=== PATIENT | female | born 1985 | race Caucasian/White ===

== ENCOUNTER 2016-09-12 13:30 | Outpatient (CLI) | payer MEDICAID ==
[~2016-09-12] VITALS: Ht 157.5 cm; Wt 109.3 kg
[~2016-09-12 13:30] MED LIST: ACHYD1T PO; ALBU17AE23 IH; AZIT-21 PO; CEFP500T4 PO; CLCX200C; CRYSELLE; CYCL10TA9; DCS100C PO; DICY10CA26 PO; DOXY100T2 PO; ESTR-7 PO; FLUO20CA25 PO; FLUO20CA42 PO; GFCD10B PO; HYDR-2890 PO; IBP800T PO; MULT-608 PO; NAPR-243 PO; NITR-65 PO; OCP; ONDAN4ODT PO; OXYC-309 PO; PHEN37.555 PO; PRD50T PO; PRENATAL VIT; TRM50T PO; ZLP5T PO; [UNRECOGNIZED DRUG - OTHER]
[2016-09-12] MEDS ORDERED: OMEP20TA33 PO (13:43)
[2016-09-12] MEDS ORDERED: TRAM50TA2 PO (13:43)
[2016-09-12] MEDS ORDERED: OXYC-465 PO (13:43)
[2016-09-12] MEDS ORDERED: TPR25T PO (13:43)
[2016-09-12] MEDS ORDERED: RIZA5TAB28 PO (13:43)
[2016-09-12] MEDS ORDERED: FLUO40CA PO (13:43)
[2016-09-12] MEDS ORDERED: HYOS0.1216 PO (13:43)
[2016-09-12 13:47] VITALS: BP 130/77
[2016-09-12 14:06] LABS: BASOPHILS # (AUTO) 0.1 10^3/uL (0.0-0.1); BASOPHILS % (AUTO) 1 % (0-10); EOSINOPHILS # (AUTO) 0.4 10^3/uL (0.0-0.3); EOSINOPHILS % (AUTO) 4 % (0-10); LYMPHOCYTES % (AUTO) 33 % (12-44); MEAN CORPUSCULAR HEMOGLOBIN 30 PG (25-34); MEAN CORPUSCULAR HGB CONC 34 G/DL (32-36); MEAN CORPUSCULAR VOLUME 88 FL (80-99); MEAN PLATELET VOLUME 8.7 FL (7.4-10.4); MONOCYTES # (AUTO) 0.6 X 10^3 (0.0-1.0); MONOCYTES % (AUTO) 7 % (0-12); NEUTROPHILS # (AUTO) 5.1 X 10^3 (1.8-7.8); NEUTROPHILS % (AUTO) 56 % (42-75); PLATELET COUNT 365 10^3/uL (130-400); RED BLOOD COUNT 4.31 10^6/uL (4.35-5.85); RED CELL DISTRIBUTION WIDTH 12.4 % (10.0-14.5); WHITE BLOOD COUNT 9.1 10^3/uL (4.3-11.0)
[2016-09-16] MEDS ORDERED: OXYC-465 PO (12:22)
== END 2016-09-12 13:57 | disposition home or self-care (01) ==
LOC: PREOP 13:30
PROVIDERS: ATTEND Obstetrics & Gynecology
DX: Z01.812 Encounter for preprocedural laboratory examination (principal); Z11.2 Encounter for screening for other bacterial diseases; R10.2 Pelvic and perineal pain; D64.9 Anemia, unspecified
CPT/HCPCS: 36415; 85025; 87081

== ENCOUNTER 2016-09-16 10:45 | Day surgery (SDC) | payer MEDICAID ==
[~2016-09-16] VITALS: Ht 157.5 cm; Wt 109.3 kg
[~2016-09-16 10:45] MED LIST changes: +FLUO40CA PO; +HYOS0.1216 PO; +OMEP20TA33 PO; +OXYC-465 PO; +RIZA5TAB28 PO; +TPR25T PO; +TRAM50TA2 PO
[2016-09-16] MEDS ORDERED: ceFAZolin 1,000 MG (ANCEF) VIAL ONE (10:47)
[2016-09-16] MEDS ORDERED: NS (IVPB) 50 ML ONE (10:47)
[2016-09-16 11:15] VITALS: BP 124/85
[2016-09-16] MEDS ORDERED: FAMOTIDINE 20MG/2ML IV (PEPCID) IV ONE (11:15)
[2016-09-16] MEDS ORDERED: CATHETER FLUSH 10 ML SYR IV PRN (11:15)
[2016-09-16] MEDS ORDERED: ceFAZolin 1 GM/NS 50 ML IVPB IV ONE ×2 (11:15)
[2016-09-16] MEDS: LACTATED RINGERS 1,000 ML IV PRN ×4 (11:20→17:50)
[2016-09-16] MEDS ORDERED: LIDOCAINE PF 2% 10 ML (XYLOCAINE) AMP ONE (11:39)
[2016-09-16] MEDS ORDERED: LIDOCAINE JELLY 2% (XYLOCAINE) 5 ML TUBE ONE (11:39)
[2016-09-16] MEDS ORDERED: proPOfol 200 MG/20 ML (DIPRIVAN) VIAL IV ONE (11:39)
[2016-09-16] MEDS ORDERED: LACTATED RINGERS 1,000 ML IV ONE (11:39)
[2016-09-16] MEDS ORDERED: fentaNYL INJECTION 100 MCG/2 ML AMP ONE (11:39)
[2016-09-16] MEDS ORDERED: ROCURONIUM 50 MG/5 ML (ZEMURON) VIAL IV ONE (11:39)
[2016-09-16] MEDS ORDERED: ONDANSETRON 4 MG/2 ML (SDV) Z0FRAN ONE (11:39)
[2016-09-16] MEDS ORDERED: MIDAZOLAM 2 MG/2 ML (VERSED) VIAL ONE (11:40)
[2016-09-16] MEDS ORDERED: morphine INJ 10 MG/ML 1ML (SYR OR VIAL) ONE ×2 (11:46→13:24)
[2016-09-16] MEDS ORDERED: MEPERIDINE (DEMEROL) INJ 50 MG/ML ONE (11:47)
[2016-09-16] MEDS ORDERED: ESTROGENS CONJ IV 25 MG/5 ML (PREMARIN) VIAL ONE (11:50)
[2016-09-16] MEDS ORDERED: KETOROLAC 30 MG/ML VIAL ONE (11:51)
[2016-09-16] MEDS ORDERED: WATER (STERILE) FOR INJECTION 10 ML ONE (11:51)
[2016-09-16] MEDS ORDERED: BUP/EPI 0.25% 1:200,000 (MARCAINE) 30 ML VIAL ONE (12:16)
--- NOTE | 2016-09-16 12:19 | Progress Note-Pre Operative ---
Pre-Operative Progress Note H&P Reviewed The H&P was reviewed, patient examined and no changes noted. Date H&P Reviewed: Sep 16, 2016 Time H&P Reviewed: 12:19 Pre-Operative Diagnosis: chronic pelvic pain/history of endometriosis INES FORTE MD Sep 16, 2016 12:19 pm
[2016-09-16] MEDS ORDERED: D5 LR IV SOLUTION 1,000 ML IV SCH (12:20)
[2016-09-16] MEDS ORDERED: OXYC-465 PO (12:22)
--- NOTE | 2016-09-16 12:25 | Discharge Instructions ---
Discharge Instructions Discharge Medications New, Converted or Re-Newed RX: RX on Chart Patient Instructions Patient Instructions: as directed Return to The Hospital For: as directed Activity & Diet Discharge Diet: No Restrictions Activity as Tolerated: Yes Orders-Post D/C & Referrals Follow Up Appt: Call to make follow up appt. for patient in 1 week. Activity: Rest for 24 hours, than as tolerated. Wound Care: May remove Band-Aid tomorrow. Replace as desired. Keep incisions clean and dry. Wash daily with soap and water. continue your own home medications including Sprintec Diet: As tolerated-Clear Liquids only if nauseated. May shower or tub bathe as desired. No driving for 24 hours, no alcoholic beverages for 24 hours. Patient to return to the clinic as soon as possible for: Temperature greater than 101F, Severe Pain, Foul discharge from incision or vagina, Excessive Bleeding (more than a period). INES FORTE MD Sep 16, 2016 12:25 pm
[2016-09-16] MEDS ORDERED: PROMETHAZINE INJ 25 MG/ML (PHENERGAN) AMP IM ONE (12:30)
[2016-09-16] MEDS ORDERED: KETOROLAC 30 MG/ML VIAL IVP ONE (12:30)
[2016-09-16] MEDS ORDERED: MEPERIDINE (DEMEROL) INJ 100 MG/ML IM ONE (12:30)
[2016-09-16] MEDS ORDERED: ESTROGENS CONJ IV 25 MG/5 ML (PREMARIN) VIAL IVP ONE (12:30)
[2016-09-16] MEDS ORDERED: ONDANSETRON 4 MG/2 ML (SDV) Z0FRAN IVP PRN (12:30)
[2016-09-16] MEDS ORDERED: SEVOFLURANE (ULTANE) 15 ML INHAL SOLN ONE ×3 (12:46→13:49)
[2016-09-16] MEDS ORDERED: NEOSTIGMINE (BLOXIVERZ ) 1 MG/1ML 10 ML VIAL ONE (13:49)
[2016-09-16] MEDS ORDERED: GLYCOPYRROLATE 0.2 MG/ML (ROBINUL) 2 ML VIAL ONE (13:49)
[2016-09-16] MEDS ORDERED: morphine INJ 10 MG/ML 1ML (SYR OR VIAL) IVP PRN (14:00)
[2016-09-16] MEDS ORDERED: MEPERIDINE (DEMEROL) INJ 50 MG/ML IVP PRN (14:00)
[2016-09-16 14:40] VITALS: BP 96/51
[2016-09-16] MEDS: oxyCODONE/APAP 10/325MG (PERCOCET 10) TABLET PO PRN ×2 (14:56→18:52)
[2016-09-16 15:10] VITALS: BP 102/68
[2016-09-16 15:40] VITALS: BP 108/67
[2016-09-16 19:16] VITALS: BP 108/67
--- NOTE | 2016-09-17 03:56 | OPERATIVE REPORT ---
DATE OF SERVICE: 09/16/2016 PREOPERATIVE DIAGNOSIS: Right lower quadrant and chronic pelvic pain with a history of endometriosis. POSTOPERATIVE DIAGNOSES: Right lower quadrant and chronic pelvic pain with a history of endometriosis with appendicitis. OPERATIVE PROCEDURES: Laparoscopic right salpingo-oophorectomy and laparoscopic appendectomy as well as adhesiolysis. OPERATIVE DESCRIPTION: With the patient in the supine position and under satisfactory general anesthesia, she was repositioned in dorsal lithotomy position in the [facility] and prepped and draped in the usual fashion for abdominal and vaginal surgery. The urinary bladder was emptied with a straight catheter. A moistened Kerlix gauze was placed in the vagina to distend the vaginal cuff. The patient was brought in the low dorsal lithotomy position. A 5 mm incision made in the patient's left upper quadrant. An 8 mm incision in the inferior margin of the umbilicus and a 5 mm incision just superior to the symphysis pubis. All three incision sites were infiltrated with 0.25% Marcaine with epinephrine. A Veress needle was placed through the umbilical incision. Correct placement was confirmed with the water drop test. The abdomen was insufflated with 2.4 liters of carbon dioxide. The Optiview laparoscopic port was placed through left upper quadrant. Under direct vision, a 12 mm port was placed through the 12 mm umbilical incision and a 5 mm port placed through suprapubic incision. The patient was placed in Trendelenburg, allowing the bowels to split up out of the pelvis. The right ovary was adherent to the ovarian fossa on the right with dense fibrotic appearing adhesions as would be expected with endometriosis. There appeared to be endometriosis implants involving the ovary as well as the right fallopian tube, distal third was still attached to the ovary. The ovary was adherent to the pelvic brim as well. The laparoscope was rotated. The appendix was indurated, injected, and erythematous. Decision was made to go ahead with appendectomy as it appeared the patient's appendix was obviously inflamed. Attention was brought back to the ovary. The ovary was grasped and elevated. The adhesions were taken free with careful meticulous dissection taking care to avoid thermal or traumatic injury to the pelvic sidewall structures. With the right ovary eventually freed onto its IP ligament, an Endo-HORACE was placed across the IP ligament and fired, severing the ovary from its attachment. The ovary with the tubes still attached was placed in the Endobag and left resting in the pelvis for removal later. Attention was now turned to the appendix. The appendix was grasped and elevated. The mesosalpinx was perforated close to the base of the appendix. Endo-HORACE was placed across the base of the appendix and fired and then a portion of the mesoappendix was divided with electrocautery and then a second Endo-HORACE was placed across the balance of the mesoappendix and fired severing that organ from its attachment. It was placed in an Endobag and brought out through the umbilical port. The pelvis was copiously irrigated as well as the right paracolic gutter. There was no bleeding noted in the right paracolic gutter. There was little bit of bleeding from the IP ligament. This was touched with electrocautery to affect hemostasis. Hemostasis assured and the pelvis irrigated, several drops of Betadine solution were dripped on the stump of the appendix. The procedure was complete and terminated. At this point, the suprapubic port was removed under direct vision. The umbilical port was removed, and then the Endobag with the ovary and tube from the right were brought out through the umbilical incision. The abdomen was evacuated. The insufflating gas in the right upper quadrant port was removed also under direct vision. There was no bleeding from the port sites. Sponge and needle counts were correct. Estimated blood loss at this point was less than 20 mL. The skin incisions were closed with interrupted nylon sutures. The fascia at the umbilical incision was closed with [id number] suture of 2-0 Vicryl. The Kerlix gauze was removed from the vagina. The patient was uneventfully awakened from general anesthesia and transferred to the recovery room in stable condition with plans for discharge home ____. Job ID: [id number] DocumentID: [id number] Dictated Date: 09/16/2016 13:30:31 Fish Worm Grower Date: 09/17/2016 03:34:38 Dictated By: MD BRIELLE HERRON
== END 2016-09-16 19:10 | disposition home or self-care (01) ==
LOC: SDC 10:45
PROVIDERS: ATTEND Obstetrics & Gynecology
DX: N80.1 Endometriosis of ovary (principal); N73.6 Female pelvic peritoneal adhesions (postinfective); N83.201 Unspecified ovarian cyst, right side; K38.0 Hyperplasia of appendix
CPT/HCPCS: 88304; 88305

== ENCOUNTER 2016-09-18 06:35 | Emergency (ER) | payer MEDICAID ==
[~2016-09-18] VITALS: Ht 157.5 cm; Wt 108.9 kg
[2016-09-18] MEDS ORDERED: NS IV 1000 ML 1,000 ML IV ONE (06:53)
[2016-09-18] MEDS ORDERED: fentaNYL INJECTION 100 MCG/2 ML AMP IVP ONE ×2 (07:00→09:00)
[2016-09-18] MEDS ORDERED: FAMOTIDINE 20MG/2ML IV (PEPCID) IVP ONE (07:00)
[2016-09-18] MEDS ORDERED: ONDANSETRON 4 MG/2 ML (SDV) Z0FRAN IVP ONE ×2 (07:00→09:45)
[2016-09-18 07:27] LABS: BASOPHILS % (AUTO) 0 % (0-10); EOSINOPHILS # (AUTO) 0.1 10^3/uL (0.0-0.3); EOSINOPHILS % (AUTO) 1 % (0-10); LYMPHOCYTES # (AUTO) 1.2 X 10^3 (1.0-4.0); LYMPHOCYTES % (AUTO) 6 % (12-44); MEAN CORPUSCULAR HEMOGLOBIN 31 PG (25-34); MEAN CORPUSCULAR HGB CONC 34 G/DL (32-36); MEAN CORPUSCULAR VOLUME 90 FL (80-99); MEAN PLATELET VOLUME 8.6 FL (7.4-10.4); MONOCYTES # (AUTO) 1.1 X 10^3 (0.0-1.0); MONOCYTES % (AUTO) 5 % (0-12); NEUTROPHILS # (AUTO) 18.4 X 10^3 (1.8-7.8); NEUTROPHILS % (AUTO) 88 % (42-75); PLATELET COUNT 362 10^3/uL (130-400); RED BLOOD COUNT 4.18 10^6/uL (4.35-5.85); RED CELL DISTRIBUTION WIDTH 12.4 % (10.0-14.5); WHITE BLOOD COUNT 20.8 10^3/uL (4.3-11.0)
[2016-09-18 07:40] LABS: ALANINE AMINOTRANSFERASE 37 U/L (0-55); ALBUMIN 3.9 G/DL (3.2-4.5); ANION GAP 8 MMOL/L (5-14); ASPARTATE AMINO TRANSFERASE 50 U/L (5-34); BILIRUBIN,TOTAL 0.7 MG/DL (0.1-1.0); BLOOD UREA NITROGEN 7 MG/DL (7-18); BUN/CREATININE RATIO 9; CALCIUM 9.1 MG/DL (8.5-10.1); CARBON DIOXIDE 28 MMOL/L (21-32); CHLORIDE 104 MMOL/L (98-107); CREATININE SERUM 0.78 MG/DL (0.60-1.30); GFR ESTIMATED > 60; GLUCOSE 104 MG/DL (70-105); LIPASE 12 U/L (8-78); MAGNESIUM 1.8 MG/DL (1.8-2.4); SODIUM 140 MMOL/L (135-145); TOTAL PROTEIN 6.7 G/DL (6.4-8.2); hs C REACTIVE PROTEIN 2.49 MG/DL (0.00-0.50)
--- NOTE | 2016-09-18 07:42 | ED General ---
General Chief Complaint: Abdominal/GI Problems Stated Complaint: VOMITING 2 DAYS POST SURGERY Nursing Triage Note: c/o postop pain and vomitng. Symptoms worsened this morning. Pt had surgery by Dr Copeland on Monday. Nursing Sepsis Screen: No Definite Risk Source of Information: Patient, Old Records Exam Limitations: No Limitations History of Present Illness Time Seen by Provider: 06:40 Initial Comments This 31-year-old woman presents to the emergency room with complaints of nausea and vomiting starting at approximately 01:00. She had surgery for right salpingo-oophorectomy, appendectomy, and adhesiolysis on September [address] Copeland. Yesterday she was feeling fairly well and eating fine. When she woke early this morning she began to vomit. She also reports having a large amount of flatus followed by a large soft bowel movement. She has not been using any stool softeners. She denies fever. She reports urinary frequency. She also reports having some acid reflux symptoms with heartburn. Allergies and Home Medications Allergies Coded Allergies: No Known Drug Allergies (Unverified , 10/30/08) Home Medications Albuterol 17 Gm Aerosol, 17 GM IH Q6H PRN, (Reported) Fluoxetine HCl 40 Mg Capsule, PO DAILY, (Reported) Hyoscyamine Sulfate 0.125 Mg Tablet, 0.125 MG PO Q8H PRN for SPASMS, (Reported) Multivitamins 1 Tab Tablet, 1 TAB PO DAILY, (Reported) Omeprazole Magnesium 20 Mg Tablet.dr, 40 MG PO DAILY, (Reported) TAKE 2 (20MG) TABS Ondansetron 4 Mg Tab.rapdis, 4 MG SL Q4H PRN for NAUSEA/VOMITING-1ST LINE, #10 Prescribed by: IDALMIS DAMICO on 09/18/16 1120 Oxycodone HCl/Acetaminophen 1 Each Tablet, 1-2 EACH PO Q4H PRN for PAIN-MODERATE , #60 Prescribed by: INES CARCAMO on 09/16/16 1222 Rizatriptan Benzoate 5 Mg Tablet, 5 MG PO DAILY PRN for MIGRAINE, (Reported) Topiramate 25 Mg Tablet, 25 MG PO BID, (Reported) Tramadol HCl 50 Mg Tablet, 50 MG PO Q4H PRN for PAIN-MILD, (Reported) Constitutional: no symptoms reported EENTM: no symptoms reported Respiratory: no symptoms reported Cardiovascular: no symptoms reported Gastrointestinal: see HPI Genitourinary: see HPI : No Musculoskeletal: no symptoms reported Skin: no symptoms reported Psychiatric/Neurological: No Symptoms Reported Hematologic/Lymphatic: No Symptoms Reported Past Wkoupox-Yopkar-Srwuya Hx Patient Social History Alcohol Use: Denies Use Recreational Drug Use: No (quit smoking) Smoking Status: Former Smoker Type Used: Cigarettes Recent Foreign Travel: No Contact w/Someone Who Travel: No Recent Infectious Disease Expo: No Recent Hopitalizations: No Immunizations Up To Date Date of Influenza Vaccine: Mar 01, 2010 Seasonal Allergies Seasonal Allergies: Yes Surgeries HX Surgeries: Yes (PARTIAL HYSTERECTOMY WITH LSO,) Surgeries: Abdominal (adhesive lysis), Adenoidectomy, Appendectomy, Section, Gallbladder, Oophorectomy (right salpingo-oophorectomy after hysterectomy), Tonsillectomy, Tubal Ligation Respiratory Hx Respiratory Disorders: No Respiratory Disorders: Asthma Cardiovascular Hx Cardiac Disorders: No Neurological Hx Neurological Disorders: Yes Neurological Disorders: Headaches /Migraines Reproductive System : No Hx Reproductive Disorders: Yes (CPP) Female Reproductive Disorders: Endometriosis Genitourinary Hx Genitourinary Disorders: No Gastrointestinal Hx Gastrointestinal Disorders: Yes Gastrointestinal Disorders: Gastroesophageal Reflux Musculoskeletal Hx Musculoskeletal Disorders: No Endocrine Hx Endocrine Disorders: No HEENT HX ENT Disorders: No Cancer Hx Cancer: No Psychosocial Hx Psychiatric Problems: No Integumentary HX Skin/Integumentary Disorder: No Blood Transfusions Hx Blood Disorders: No Physical Exam Vital Signs Vital Sign - Last 12Hours 09/18/16 06:51 Temp 97.8 Pulse 90 Resp 18 B/P (MAP) 116/60 Pulse Ox 98 Capillary Refill : Less Than 3 Seconds General Appearance: No Apparent Distress, WD/WN, Obese HEENT: PERRL/EOMI, Normal ENT Inspection, Other (oropharynx dry) Neck: Normal Inspection Respiratory: Lungs Clear, Normal Breath Sounds, No Accessory Muscle Use, No Respiratory Distress Cardiovascular: Regular Rate, Rhythm, No Edema, No Murmur Gastrointestinal: Normal Bowel Sounds, Soft, Tenderness (as anticipated for postoperative day number 2), Other (well healing incisions with minimal ecchymosis and sutures intact) Extremity: Normal Inspection, No Pedal Edema Neurologic/Psychiatric: Alert, Oriented x3, No Motor/Sensory Deficits, Normal Mood/Affect, curriculum development specialist II-XII Norm as Tested Skin: Normal Color, Warm/Dry, Other (incisions as above) Progress/Results/Core Measures Results/Orders Lab Results Laboratory Tests Test 09/18/16 07:14 09/18/16 08:09 Range/Units White Blood Count 20.8 H 4.3-11.0 10^3/uL Red Blood Count 4.18 L 4.35-5.85 10^6/uL Hemoglobin 12.8 11.5-16.0 G/DL Hematocrit 38 35-52 % Mean Corpuscular Volume 90 80-99 FL Mean Corpuscular Hemoglobin 31 25-34 PG Mean Corpuscular Hemoglobin Concent 34 32-36 G/DL Red Cell Distribution Width 12.4 10.0-14.5 % Platelet Count 362 130-400 10^3/uL Mean Platelet Volume 8.6 7.4-10.4 FL Neutrophils (%) (Auto) 88 H 42-75 % Lymphocytes (%) (Auto) 6 L 12-44 % Monocytes (%) (Auto) 5 0-12 % Eosinophils (%) (Auto) 1 0-10 % Basophils (%) (Auto) 0 0-10 % Neutrophils # (Auto) 18.4 H 1.8-7.8 X 10^3 Lymphocytes # (Auto) 1.2 1.0-4.0 X 10^3 Monocytes # (Auto) 1.1 H 0.0-1.0 X 10^3 Eosinophils # (Auto) 0.1 0.0-0.3 10^3/uL Basophils # (Auto) 0.0 0.0-0.1 10^3/uL Sodium Level 140 135-145 MMOL/L Potassium Level 4.0 3.6-5.0 MMOL/L Chloride Level 104 98-107 MMOL/L Carbon Dioxide Level 28 21-32 MMOL/L Anion Gap 8 5-14 MMOL/L Blood Urea Nitrogen 7 7-18 MG/DL Creatinine 0.78 0.60-1.30 MG/DL Estimat Glomerular Filtration Rate > 60 BUN/Creatinine Ratio 9 Glucose Level 104 70-105 MG/DL Calcium Level 9.1 8.5-10.1 MG/DL Magnesium Level 1.8 1.8-2.4 MG/DL Total Bilirubin 0.7 0.1-1.0 MG/DL Aspartate Amino Transf (AST/SGOT) 50 H 5-34 U/L Alanine Aminotransferase (ALT/SGPT) 37 0-55 U/L Alkaline Phosphatase 81 40-136 U/L C-Reactive Protein High Sensitivity 2.49 H 0.00-0.50 MG/DL Total Protein 6.7 6.4-8.2 G/DL Albumin 3.9 3.2-4.5 G/DL Lipase 12 8-78 U/L Urine Color YELLOW Urine Clarity CLEAR Urine pH 8 5-9 Urine Specific [place] 1.015 L 1.016-1.022 Urine Protein NEGATIVE NEGATIVE Urine Glucose (UA) NEGATIVE NEGATIVE Urine Ketones 1+ H NEGATIVE Urine Nitrite NEGATIVE NEGATIVE Urine Bilirubin NEGATIVE NEGATIVE Urine Urobilinogen NORMAL NORMAL MG/DL Urine Leukocyte Esterase NEGATIVE NEGATIVE Urine RBC (Auto) NEGATIVE NEGATIVE Urine RBC NONE /HPF Urine WBC NONE /HPF Urine Squamous Epithelial Cells 5-10 /HPF Urine Crystals NONE /LPF Urine Bacteria NEGATIVE /HPF Urine Casts NONE /LPF Urine Mucus NEGATIVE /LPF Urine Culture Indicated NO My Orders Orders - IDALMIS COOK MD Ua Culture If Indicated (09/18/16 06:45) Cbc With Automated Diff (09/18/16 06:53) Comprehensive Metabolic Panel (09/18/16 06:53) Hs C Reactive Protein (09/18/16 06:53) Magnesium (09/18/16 06:53) Saline Lock/Iv-Start (09/18/16 06:53) Ns Iv 1000 Ml (Sodium Chloride 0.9%) (09/18/16 06:53) Fentanyl Injection (Sublimaze Injection (09/18/16 07:00) Famotidine Injection (Pepcid Injection) (09/18/16 07:00) Ondansetron Injection (Zofran Injectio (09/18/16 07:00) Lipase (09/18/16 06:53) Chest Pa/Lat (2 View) (09/18/16 07:45) Fentanyl Injection (Sublimaze Injection (09/18/16 09:00) Ct Abdomen/Pelvis W (09/18/16 08:50) Iohexol Injection (Omnipaque 350 Mg/Ml 1 (09/18/16 09:00) Ns (Ivpb) (Sodium Chloride 0.9% Ivpb Bag (09/18/16 09:00) Ketorolac Injection (Toradol Injection) (09/18/16 09:45) Ondansetron Injection (Zofran Injectio (09/18/16 09:45) Medications Given in ED Vital Signs/I&O Blood Pressure Mean: 78 Progress Note #1: Time: 07:43 Progress Note Patient is receiving a liter of IV normal saline. Labs and UA are being processed. Symptoms were treated with Zofran, Pepcid, and fentanyl. Progress Note #2: Time: 08:52 Progress Note No significant abnormalities were found on workup except for leukocytosis of 20, 000. I discussed the case with Dr. MORENO, lapidary apprentice security solutions architect. He recommends at a minimum performing KUB and upright films. CT scan with contrast should be considered. I discussed the risks and benefits of CT imaging with the patient including cost and risk of radiation exposure. Patient elects to have CT performed now. Pain is rebounding and an additional dose of fentanyl was ordered. Progress Note #3: Time: 09:[address] viewed and report reviewed. There was a small amount of free air and inflammatory changes consistent with recent surgery. Bowel had the appearance of ileus. No other acute abnormalities were identified. Case was again discussed with Dr. MORENO. He advised dismissing the patient with strict return precautions. I communicated the progress with the patient. Patient reports rebounding nausea and pain. She reports pain is now worse than when she first arrived. I ordered Toradol and an additional dose of Zofran. Disposition will be pending her response. Diagnostic Imaging Diagonstic Imaging: Xray Plain Films/CT/US/NM/MRI: chest Comments Chest x-ray viewed by me and report reviewed. See report below: NAME: IVONNE PARSONS [facility] REC#: [id number] PT STATUS: REG ER : 1985 PHYSICIAN: IDALMIS COOK MD ADMIT DATE: 09/18/16/ER Draft Date of Exam:09/18/16 CHEST PA/LAT (2 VIEW) INDICATION: Nausea and vomiting after partial hysterectomy. Comparison made with prior examination from 04/25/12. FINDINGS: The heart size is normal. Mediastinum is unremarkable. There is no pleural effusion, pneumothorax or pneumonia. IMPRESSION: No acute cardiopulmonary abnormality. Dictated on workstation # [id number] Dict: 09/18/16 0812 Trans: 09/18/16 0814 [facility] [id number] Interpreted by: CHERI SORTO Diagonstic Imaging: CT Plain Films/CT/US/NM/MRI: abdomen, pelvis Comments CT abdomen and pelvis viewed by me and report reviewed. See report below: NAME: IVONNE PARSONS [facility] REC#: [id number] PT STATUS: REG ER : 1985 PHYSICIAN: IDALMIS COOK MD ADMIT DATE: 09/18/16/ER Draft Date of Exam:09/18/16 CT ABDOMEN/PELVIS W PROCEDURE: CT abdomen and pelvis with contrast. TECHNIQUE: Multiple contiguous axial images were obtained through the abdomen and pelvis after administration of intravenous contrast. INDICATION: Postop. Nausea and vomiting. Appendectomy and oophorectomy. Comparison with 11/26/2007. FINDINGS: Lung bases are clear. Liver appears normal. Gallbladder is absent. Bile ducts are not dilated. Pancreas and spleen are normal. Adrenal glands and kidneys appear normal. There is normal enhancement of the abdominal organs and vessels following IV contrast. There are air-fluid levels noted within the small bowel which are mildly dilated. There is gas and fluid within the ascending and transverse colon. Descending colon is decompressed. There is a small amount of free air in the abdomen consistent with recent surgery. There is no free fluid. No loculated fluid collections are seen to suggest abscess. IMPRESSION: 1. Finding are consistent with mild adynamic ileus with no definite changes to suggest bowel obstruction. 2. Trace of free air consistent with recent surgery. No free fluid or abscesses demonstrated. Dictated on workstation # [id number] Dict: 09/18/1618 Trans: 09/18/16 0925 [facility] [id number] Interpreted by: AZALIA COWAN MD Departure Impression Impression: Primary Impression: Postoperative pain Additional Impressions: Nausea & vomiting Qualified Codes: R11.2 - Nausea with vomiting, unspecified Leukocytosis Qualified Codes: D72.829 - Elevated white blood cell count, unspecified Disposition: 01 HOME, SELF-CARE Condition: Improved Departure-Patient Inst. Decision time for Depature: 11:00 Referrals: NO,LOCAL PHYSICIAN (PCP) Primary Care Physician Patient Instructions: Postoperative Pain (DC) Add. Discharge Instructions: Continue this upon plenty of clear liquids. Use Percocet for your primary pain management. You may use ibuprofen sparingly for pain not controlled by Percocet. Take 400 mg every 6 hours as needed. Take with food. Continue to take Prilosec (omeprazole) every day. Return to the emergency room if symptoms worsen or you develop new symptoms such as fever greater than 100. Use the Zofran (ondansetron) as prescribed for nausea. Contact Dr. Copeland tomorrow morning to provide him an update. All discharge instructions reviewed with patient and/or family. Voiced understanding. Scripts Ondansetron (Zofran Odt) 4 Mg Tab.rapdis 4 MG SL Q4H Y for NAUSEA/VOMITING-1ST LINE, #10 TAB Prov: IDALMIS COOK MD 09/18/16 Copy Copies To 1: INES COPELAND MD, JOSHUA T MD Sep 18, 2016 07:42
--- NOTE | 2016-09-18 08:14 | Diagnostic Imaging Report ---
INDICATION: Nausea and vomiting after partial hysterectomy. Comparison made with prior examination from 04/25/12. FINDINGS: The heart size is normal. Mediastinum is unremarkable. There is no pleural effusion, pneumothorax or pneumonia. IMPRESSION: No acute cardiopulmonary abnormality. Dictated by: Dictated on workstation # [id number]
[2016-09-18 08:16] LABS: BILIRUBIN,URINE NEGATIVE (NEGATIVE); KETONES,URINE 1+ (NEGATIVE); LEUKOCYTE ESTERASE ,URINE NEGATIVE (NEGATIVE); NITRITE,URINE NEGATIVE (NEGATIVE); PH,URINE 8 (5-9); PROTEIN,URINE NEGATIVE (NEGATIVE); UROBILINOGEN,URINE NORMAL (NORMAL)
[2016-09-18] MEDS ORDERED: IOHEXOL 350 MG/ML 150 ML (OMNIPAQUE 350) VIAL IV ONE (09:00)
[2016-09-18] MEDS ORDERED: NS 100 ML (IVPB) BAG IV ONE (09:00)
--- NOTE | 2016-09-18 09:26 | Diagnostic Imaging Report ---
PROCEDURE: CT abdomen and pelvis with contrast. TECHNIQUE: Multiple contiguous axial images were obtained through the abdomen and pelvis after administration of intravenous contrast. INDICATION: Postop. Nausea and vomiting. Appendectomy and oophorectomy. Comparison with 11/26/2007. FINDINGS: Lung bases are clear. Liver appears normal. Gallbladder is absent. Bile ducts are not dilated. Pancreas and spleen are normal. Adrenal glands and kidneys appear normal. There is normal enhancement of the abdominal organs and vessels following IV contrast. There are air-fluid levels noted within the small bowel which are mildly dilated. There is gas and fluid within the ascending and transverse colon. Descending colon is decompressed. There is a small amount of free air in the abdomen consistent with recent surgery. There is no free fluid. No loculated fluid collections are seen to suggest abscess. IMPRESSION: 1. Finding are consistent with mild adynamic ileus with no definite changes to suggest bowel obstruction. 2. Trace of free air consistent with recent surgery. No free fluid or abscesses demonstrated. Dictated by: Dictated on workstation # [id number]
[2016-09-18] MEDS ORDERED: KETOROLAC 30 MG/ML VIAL IVP ONE (09:45)
[2016-09-18] MEDS ORDERED: ONDA4TAB8 SL (11:20)
[2016-09-18 11:30] VITALS: BP 128/64
== END 2016-09-18 11:29 | disposition home or self-care (01) ==
LOC: EDUNIT# 06:35 → ER 06:38
DX: G89.18 Other acute postprocedural pain (principal); R11.2 Nausea with vomiting, unspecified; D72.829 Elevated white blood cell count, unspecified; Z87.891 Personal history of nicotine dependence; Z79.899 Other long term (current) drug therapy; Z90.721 Acquired absence of ovaries, unilateral
CPT/HCPCS: 36415; 71020; 74177; 80053; 81000; 83690; 83735; 85025; 86141; 96361; 96374; 96375; 96376

== ENCOUNTER 2016-12-04 04:41 | Emergency (ER) | payer MEDICAID ==
[~2016-12-04] VITALS: Ht 157.5 cm; Wt 108.9 kg
[~2016-12-04 04:41] MED LIST changes: +ONDA4TAB8 SL
[2016-12-04] MEDS ORDERED: NORG1TAB30 (04:56)
[2016-12-04 05:18] LABS: BASOPHILS # (AUTO) 0.1 10^3/uL (0.0-0.1); BASOPHILS % (AUTO) 0 % (0-10); EOSINOPHILS # (AUTO) 0.4 10^3/uL (0.0-0.3); EOSINOPHILS % (AUTO) 4 % (0-10); LYMPHOCYTES # (AUTO) 5.1 X 10^3 (1.0-4.0); LYMPHOCYTES % (AUTO) 43 % (12-44); MEAN CORPUSCULAR HEMOGLOBIN 30 PG (25-34); MEAN CORPUSCULAR HGB CONC 34 G/DL (32-36); MEAN CORPUSCULAR VOLUME 89 FL (80-99); MEAN PLATELET VOLUME 8.5 FL (7.4-10.4); MONOCYTES # (AUTO) 0.9 X 10^3 (0.0-1.0); MONOCYTES % (AUTO) 7 % (0-12); NEUTROPHILS # (AUTO) 5.5 X 10^3 (1.8-7.8); NEUTROPHILS % (AUTO) 46 % (42-75); PLATELET COUNT 419 10^3/uL (130-400); RED BLOOD COUNT 4.51 10^6/uL (4.35-5.85); RED CELL DISTRIBUTION WIDTH 12.7 % (10.0-14.5); WHITE BLOOD COUNT 11.9 10^3/uL (4.3-11.0)
[2016-12-04 05:19] LABS: BILIRUBIN,URINE NEGATIVE (NEGATIVE); KETONES,URINE NEGATIVE (NEGATIVE); LEUKOCYTE ESTERASE ,URINE NEGATIVE (NEGATIVE); NITRITE,URINE NEGATIVE (NEGATIVE); PH,URINE 5 (5-9); PROTEIN,URINE NEGATIVE (NEGATIVE); UROBILINOGEN,URINE NORMAL (NORMAL)
--- NOTE | 2016-12-04 05:26 | ED Abdominal Pain ---
General Chief Complaint: Abdominal/GI Problems Stated Complaint: AB PAIN BLOOD IN STOOL DIZZY Nursing Triage Note: INTERMITTANT ABDOMINAL PAIN X1 HR Sepsis Screen: No Definite Risk (CODY LOWE MEDICAL STUDENT) History of Present Illness Time Seen By Provider: 05:00 Initial Comments Ms. Khalil is a 31 year old female presenting with abdominal pain and bloody stool. She states that at 4:00 am, she woke up with a "pressure-type" pain in the midepigastric/LUQ region. This type of pain usually goes away after a bowel movement, so she went to the bathroom and had a small, charcoal-colored bowel movement. However the pain persisted and is more intense than usual. The pain is currently 9/10 and there are no alleviating or aggravating factors; it does not radiate. She last ate biscuits and gravy at 7:30 pm yesterday and does not feel hungry now. She reports dizziness, headache, increased flatulence, dark red stools, and nausea for the last four days. She denies diarrhea, constipation , or vomiting. (CODY LOWE MEDICAL STUDENT) Allergies and Home Medications Allergies Coded Allergies: No Known Drug Allergies (Unverified , 10/30/08) Home Medications Albuterol 17 Gm Aerosol, 17 GM IH Q6H PRN, (Reported) Famotidine 20 Mg Tablet, 20 MG PO BID, #60 Prescribed by: IDALMIS DAMICO on 12/04/1624 Fluoxetine HCl 40 Mg Capsule, PO DAILY, (Reported) Hyoscyamine Sulfate 0.125 Mg Tablet, 0.125 MG PO Q8H PRN for SPASMS, (Reported) Multivitamins 1 Tab Tablet, 1 TAB PO DAILY, (Reported) Norgestimate-Ethinyl Estradiol 1 Each Tablet, #112 (Reported) Omeprazole Magnesium 20 Mg Tablet.dr, 40 MG PO DAILY, (Reported) TAKE 2 (20MG) TABS Rizatriptan Benzoate 5 Mg Tablet, 5 MG PO DAILY PRN for MIGRAINE, (Reported) Sucralfate 1 Gm/10 Ml Oral.susp, 1 GM PO QID, #1200 Prescribed by: IDALMIS DAMICO on 12/04/16623 Topiramate 25 Mg Tablet, 25 MG PO BID, (Reported) Review of Systems Constitutional: no symptoms reported EENTM: No Symptoms Reported Respiratory: No Symptoms Reported Cardiovascular: No Symptoms Reported Gastrointestinal: See HPI Genitourinary: No Symptoms Reported Musculoskeletal: no symptoms reported Skin: no symptoms reported Psychiatric/Neurological: No Symptoms Reported Endocrine: No Symptoms Reported Hematologic/Lymphatic: See HPI (IDALMIS COOK MD) Past Yfofipp-Zmlqtt-Wqihqb Hx Patient Social History Alcohol Use: Denies Use Recreational Drug Use: No Smoking Status: Former Smoker Type Used: Cigarettes 2nd Hand Smoke Exposure: No Recent Foreign Travel: No Contact w/Someone Who Travel: No Recent Infectious Disease Expo: No Recent Hopitalizations: No (CODY LOWE MEDICAL STUDENT) Immunizations Up To Date Tetanus Booster (TDap): Unknown Date of Influenza Vaccine: Mar 01, 2010 (CODY LOWE MEDICAL FERDINAND) Seasonal Allergies Seasonal Allergies: Yes (CODY LOWE MEDICAL STUDENT) Surgeries HX Surgeries: Yes (PARTIAL HYSTERECTOMY WITH LSO,) Surgeries: Abdominal, Adenoidectomy, Appendectomy, Section, Gallbladder, Hysterectomy, Oophorectomy, Tonsillectomy, Tubal Ligation (CODY LOWE MEDICAL STUDENT) Respiratory Hx Respiratory Disorders: No Respiratory Disorders: Asthma (CODY LOWE MEDICAL STUDENT) Cardiovascular Hx Cardiac Disorders: No (CODY LOWE MEDICAL STUDENT) Neurological Hx Neurological Disorders: Yes Neurological Disorders: Headaches /Migraines (CODY LOWE MEDICAL FERDINAND) Reproductive System : No Hx Reproductive Disorders: Yes (CPP) Female 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 (CODY LOWE MEDICAL STUDENT) Genitourinary Hx Genitourinary Disorders: No (CODY LOWE MEDICAL FERDINAND) Gastrointestinal Hx Gastrointestinal Disorders: Yes Gastrointestinal Disorders: Colitis, Gastroesophageal Reflux, Irritable Bowel (CODY LOWE MEDICAL STUDENT) Musculoskeletal Hx Musculoskeletal Disorders: No (CODY LOWE MEDICAL STUDENT) Endocrine Hx Endocrine Disorders: No (CODY LOWE MEDICAL STUDENT) HEENT HX ENT Disorders: No (CODY LOWE MEDICAL FERDINAND) Cancer Hx Cancer: No (CODY LOWE MEDICAL STUDENT) Psychosocial Hx Psychiatric Problems: No (CODY LOWE MEDICAL FERDINAND) Integumentary HX Skin/Integumentary Disorder: No (CODY LOWE MEDICAL STUDENT) Blood Transfusions Hx Blood Disorders: No (CODY LOWE MEDICAL STUDENT) Physical Exam Vital Signs VS - Last 72 Hours, by Label 12/04/16 12/04/16 04:56 06:37 Temp 97.7 97.7 Pulse 88 70 Resp 18 18 B/P (MAP) 124/89 Pulse Ox 98 97 O2 Delivery Room Air Room Air (IDALMIS COOK MD) Vital Signs Capillary Refill : Less Than 3 Seconds (CODY LOWE MEDICAL STUDENT) General Appearance: WD/WN, no apparent distress Respiratory: chest non-tender, lungs clear, normal breath sounds, no accessory muscle use Cardiovascular: regular rate, rhythm, no murmur Gastrointestinal: normal bowel sounds, soft, no organomegaly, guarding, tenderness (midepigastric and RLQ) Neurologic/Psychiatric: alert, normal mood/affect, oriented x 3 Skin: normal color, warm/dry (CODY LOWE MEDICAL STUDENT) HEENT: PERRL/EOMI, normal ENT inspection Cardiovascular: no edema Gastrointestinal: tenderness (midepigastric and RLQ) Genital/Rectal: normal rectal exam, heme negative stool, normal rectal tone Extremities: normal inspection, no pedal edema Neurologic/Psychiatric: flakeboard line tender II-XII nml as tested, no motor/sensory deficits ( IDALMIS COOK MD) Progress/Results/Core Measures Results/Orders Lab Results Laboratory Tests Test 12/04/16 05:05 12/04/16 05:10 Range/Units Urine Color YELLOW Urine Clarity SLIGHTLY CLOUDY Urine pH 5 5-9 Urine Specific Marshall 1.025 H 1.016-1.022 Urine Protein NEGATIVE NEGATIVE Urine Glucose (UA) NEGATIVE NEGATIVE Urine Ketones NEGATIVE NEGATIVE Urine Nitrite NEGATIVE NEGATIVE Urine Bilirubin NEGATIVE NEGATIVE Urine Urobilinogen NORMAL NORMAL MG/DL Urine Leukocyte Esterase NEGATIVE NEGATIVE Urine RBC (Auto) NEGATIVE NEGATIVE Urine RBC NONE /HPF Urine WBC 0-2 /HPF Urine Squamous Epithelial Cells TNTC H /HPF Urine Crystals NONE /LPF Urine Bacteria FEW H /HPF Urine Casts NONE /LPF Urine Mucus NEGATIVE /LPF Urine Culture Indicated NO White Blood Count 11.9 H 4.3-11.0 10^3/uL Red Blood Count 4.51 4.35-5.85 10^6/uL Hemoglobin 13.5 11.5-16.0 G/DL Hematocrit 40 35-52 % Mean Corpuscular Volume 89 80-99 FL Mean Corpuscular Hemoglobin 30 25-34 PG Mean Corpuscular Hemoglobin Concent 34 32-36 G/DL Red Cell Distribution Width 12.7 10.0-14.5 % Platelet Count 419 H 130-400 10^3/uL Mean Platelet Volume 8.5 7.4-10.4 FL Neutrophils (%) (Auto) 46 42-75 % Lymphocytes (%) (Auto) 43 12-44 % Monocytes (%) (Auto) 7 0-12 % Eosinophils (%) (Auto) 4 0-10 % Basophils (%) (Auto) 0 0-10 % Neutrophils # (Auto) 5.5 1.8-7.8 X 10^3 Lymphocytes # (Auto) 5.1 H 1.0-4.0 X 10^3 Monocytes # (Auto) 0.9 0.0-1.0 X 10^3 Eosinophils # (Auto) 0.4 H 0.0-0.3 10^3/uL Basophils # (Auto) 0.1 0.0-0.1 10^3/uL Prothrombin Time 11.8 L 12.2-14.7 SEC INR Comment 0.9 0.8-1.4 Activated Partial Thromboplast Time 28 24-35 SEC Sodium Level 140 135-145 MMOL/L Potassium Level 4.1 3.6-5.0 MMOL/L Chloride Level 109 H 98-107 MMOL/L Carbon Dioxide Level 20 L 21-32 MMOL/L Anion Gap 11 5-14 MMOL/L Blood Urea Nitrogen 8 7-18 MG/DL Creatinine 0.79 0.60-1.30 MG/DL Estimat Glomerular Filtration Rate > 60 BUN/Creatinine Ratio 10 Glucose Level 87 70-105 MG/DL Calcium Level 9.4 8.5-10.1 MG/DL Total Bilirubin 0.4 0.1-1.0 MG/DL Aspartate Amino Transf (AST/SGOT) 21 5-34 U/L Alanine Aminotransferase (ALT/SGPT) 26 0-55 U/L Alkaline Phosphatase 53 40-136 U/L Total Protein 7.3 6.4-8.2 GM/DL Albumin 4.1 3.2-4.5 GM/DL Lipase 13 8-78 U/L (IDALMIS COOK MD) My Orders Orders - IDALMIS COOK MD Cbc With Automated Diff (12/04/16 04:51) Comprehensive Metabolic Panel (12/04/16 04:51) Lipase (12/04/16 04:51) Protime With Inr (12/04/16 04:51) Partial Thromboplastin Time (12/04/16 04:51) Ua Culture If Indicated (12/04/16 04:51) Saline Lock/Iv-Start (12/04/16 04:51) Lidocaine 2% Viscous 15 Ml (Xylocaine Vi (12/04/16 05:30) Antacid Suspension (Mylanta Suspension (12/04/16 05:30) Famotidine Injection (Pepcid Injection) (12/04/16 05:30) Fecal Occult Bedside (12/04/16 05:21) (IDALMIS COOK MD) Medications Given in ED Current Medications Medications Dose Ordered Sig/Irma Route Start Time Stop Time Status Last Admin Dose Admin Al Hydrox/Mg Hydrox/Simethicone 30 ml ONCE ONCE PO 12/04/16 05:30 12/04/16 05:32 DC 12/04/16 05:33 30 ML Famotidine 20 mg ONCE ONCE IVP 12/04/16 05:30 12/04/16 05:32 DC 12/04/16 05:33 20 MG Lidocaine HCl 15 ml ONCE ONCE PO 12/04/16 05:30 12/04/16 05:32 DC 12/04/16 05:33 15 ML (IDALMIS COOK MD) Vital Signs/I&O Vital Sign - Last 12Hours 12/04/16 12/04/16 04:56 06:37 Temp 97.7 97.7 Pulse 88 70 Resp 18 18 B/P (MAP) 124/89 Pulse Ox 98 97 O2 Delivery Room Air Room Air (IDALMIS COOK MD) Blood Pressure Mean: 101 Progress Note : Progress Note This patient was interviewed, seen, and examined along with Cody Lowe, 4. Case was reviewed and I agree with his documentation, assessment, and plan. Patient gives a history of prior episodes of gastritis and GERD. She presently takes Prilosec 40 mg twice a day. She reports having endoscopy in the past revealing gastritis. Hemoccult stool was performed and was negative. Patient had another bowel movement in the ER which was of normal appearance. The GI cocktail and Pepcid improved her pain significantly. Pain decreased from 9/10 to 5/10. Patient was prescribed Pepcid and Carafate to take in addition to her Prilosec. She was advised to seek out consultation for upper endoscopy. (IDALMIS COOK MD) Departure Impression Impression: Primary Impression: Epigastric abdominal pain Additional Impressions: Gastritis Qualified Codes: K29.70 - Gastritis, unspecified, without bleeding Melena Disposition: HOME, SELF-CARE Condition: Improved Departure-Patient Inst. Decision time for Depature: 06:10 (IDALMIS COOK MD) Referrals: NO,LOCAL PHYSICIAN (PCP/Family) Primary Care Physician Patient Instructions: Acute Abdomen (Belly Pain), Adult (DC), Gastritis (DC) Add. Discharge Instructions: Follow-up with your doctor as soon as possible to arrange referral for upper endoscopy. With Prilosec as previously prescribed. Add Pepcid and Carafate as prescribed. Use Carafate 30 minutes before meals and before bedtime. Return to care if symptoms worsen. Avoid the following: Eating large meals, eating close to bedtime, citrus fruits and juices, tomato products, caffeine, carbonation, chocolate, mint, spicy food , fatty or greasy foods, alcohol, tobacco, NSAID medications such as ibuprofen, naproxen, or aspirin, or anything else you know irritates your stomach. All discharge instructions reviewed with patient and/or family. Voiced understanding. Scripts Famotidine (Pepcid) 20 Mg Tablet 20 MG PO BID, #60 TAB Prov: IDALMIS COOK MD 12/04/16 Sucralfate (Carafate) 1 Gm/10 Ml Oral.susp 1 GM PO QID, #1200 ML Prov: IDALMIS COOK MD 12/04/16 CODY LOWE MEDICAL STUDENT Dec 04, 2016 05:26 IDALMIS COOK MD Dec 04, 2016 06:27
[2016-12-04 05:27] LABS: SQUAMOUS EPITHELIAL CELL,UR TNTC /HPF; WBC,URINE 0-2 /HPF
[2016-12-04 05:29] LABS: INR 0.9 (0.8-1.4); PROTHROMBIN TIME PATIENT 11.8 SEC (12.2-14.7)
[2016-12-04] MEDS ORDERED: ANTACID SUSP 30 ML UDC (MYLANTA) PO ONE (05:30)
[2016-12-04] MEDS ORDERED: FAMOTIDINE 20MG/2ML IV (PEPCID) IVP ONE (05:30)
[2016-12-04] MEDS ORDERED: LIDOCAINE 2% VISCOUS 15 ML UDC PO ONE (05:30)
[2016-12-04 05:41] LABS: ALANINE AMINOTRANSFERASE 26 U/L (0-55); ALBUMIN 4.1 GM/DL (3.2-4.5); ANION GAP 11 MMOL/L (5-14); ASPARTATE AMINO TRANSFERASE 21 U/L (5-34); BILIRUBIN,TOTAL 0.4 MG/DL (0.1-1.0); BLOOD UREA NITROGEN 8 MG/DL (7-18); BUN/CREATININE RATIO 10; CALCIUM 9.4 MG/DL (8.5-10.1); CARBON DIOXIDE 20 MMOL/L (21-32); CHLORIDE 109 MMOL/L (98-107); CREATININE SERUM 0.79 MG/DL (0.60-1.30); GFR ESTIMATED > 60; GLUCOSE 87 MG/DL (70-105); LIPASE 13 U/L (8-78); POTASSIUM 4.1 MMOL/L (3.6-5.0); SODIUM 140 MMOL/L (135-145); TOTAL PROTEIN 7.3 GM/DL (6.4-8.2)
[2016-12-04] MEDS ORDERED: FAMO-119 PO (06:24)
[2016-12-04] MEDS ORDERED: SUCR1ORA5 PO (06:24)
[2016-12-04 06:37] VITALS: BP 114/72
== END 2016-12-04 06:33 | disposition home or self-care (01) ==
LOC: EDUNIT# 04:41 → ER 04:44
DX: K29.70 Gastritis, unspecified, without bleeding (principal); K92.1 Melena; K21.9 Gastro-esophageal reflux disease without esophagitis; G43.909 Migraine, unspecified, not intractable, without status migrainosus; J45.909 Unspecified asthma, uncomplicated; Z90.721 Acquired absence of ovaries, unilateral; Z90.89 Acquired absence of other organs; Z90.49 Acquired absence of other specified parts of digestive tract; Z90.711 Acquired absence of uterus with remaining cervical stump; Z98.51 Tubal ligation status; Z87.891 Personal history of nicotine dependence
CPT/HCPCS: 36415; 80053; 81000; 83690; 85025; 85610; 85730

== ENCOUNTER 2017-01-02 23:48 | Emergency (ER) | payer MEDICAID ==
[~2017-01-02] VITALS: Ht 157.5 cm; Wt 104.3 kg
[~2017-01-02 23:48] MED LIST changes: +FAMO-119 PO; +HYOS-20 PO; -HYOS0.1216 PO; +NORG1TAB30; +SUCR1ORA5 PO
[2017-01-03] MEDS ORDERED: SUMA25TA3 PO (00:51)
[2017-01-03] MEDS ORDERED: NS IV 1000 ML 1,000 ML IV ONE (01:10)
--- NOTE | 2017-01-03 01:10 | ED Headache ---
General Chief Complaint: Head/Cervical Problems Stated Complaint: MIGRAINE Nursing Triage Note: MIGRAINE Nursing Sepsis Screen: No Definite Risk Source: patient, family (fiance) Exam Limitations: no limitations History of Present Illness Time seen by provider: 01:07 Initial Comments Patient presents to ER by private conveyance with chief complaint of migraine headache started yesterday she took one dose of her Imitrex and it went away. She states she has a history of migraine headaches may represent just like this right sided of her face although this is one the more severe on she's ever had. It came back today and she took another dose of Imitrex at 1900 hrs. but it has not gone away tonight. Typically laying down drink and cool water ibuprofen and Imitrex is also takes Robert-Dur headaches occasionally however she has to come and get some medicine in the ER. She has some nausea but has not vomited. She's had no diarrhea rash fever chills. She does have seasonal allergies however she does not have any itchy or rhinorrhea at this time. Allergies and Home Medications Allergies Coded Allergies: No Known Drug Allergies (Unverified , 10/30/08) Home Medications Albuterol 17 Gm Aerosol, 17 GM IH Q6H PRN, (Reported) Famotidine 20 Mg Tablet, 20 MG PO BID, #60 Prescribed by: IDALMIS DAMICO on 12/04/16623 Fluoxetine HCl 40 Mg Capsule, PO DAILY, (Reported) Multivitamins 1 Tab Tablet, 1 TAB PO DAILY, (Reported) Norgestimate-Ethinyl Estradiol 1 Each Tablet, #112 (Reported) Omeprazole Magnesium 20 Mg Tablet.dr, 40 MG PO DAILY, (Reported) TAKE 2 (20MG) TABS Rizatriptan Benzoate 5 Mg Tablet, 5 MG PO DAILY PRN for MIGRAINE, (Reported) Sucralfate 1 Gm/10 Ml Oral.susp, 1 GM PO QID, #1200 Prescribed by: IDALMIS DAMICO on 12/04/16623 Sumatriptan Succinate 25 Mg Tablet, 25 MG PO, (Reported) Topiramate 25 Mg Tablet, 25 MG PO BID, (Reported) Constitutional: No chills, No diaphoresis, No fever, No malaise Eyes: Denies Blindness, Denies Blurred Vision Ears, Nose, Mouth, Throat: denies ear pain, denies ear discharge Respiratory: No cough, No short of breath Gastrointestinal: No abdominal pain, No constipation, No diarrhea, nausea Genitourinary: No discharge, No dysuria, No frequency Skin: No pruritus, No rash Psychiatric/Neurological: Denies Headache, Denies Numbness Past Eguywul-Ikgway-Ceatnh Hx Patient Social History Alcohol Use: Denies Use Recreational Drug Use: No Smoking Status: Former Smoker Type Used: Cigarettes 2nd Hand Smoke Exposure: No Recent Foreign Travel: No Contact w/Someone Who Travel: No Recent Infectious Disease Expo: No Recent Hopitalizations: No Immunizations Up To Date Tetanus Booster (TDap): Unknown Date of Influenza Vaccine: Mar 01, 2010 Seasonal Allergies Seasonal Allergies: Yes Surgeries HX Surgeries: Yes (PARTIAL HYSTERECTOMY WITH LSO,) Surgeries: Abdominal, Adenoidectomy, Appendectomy, Section, Gallbladder, Hysterectomy, Oophorectomy, Tonsillectomy, Tubal Ligation Respiratory Hx Respiratory Disorders: No Respiratory Disorders: Asthma Cardiovascular Hx Cardiac Disorders: No Neurological Hx Neurological Disorders: Yes Neurological Disorders: Headaches /Migraines Reproductive System : No Hx Reproductive Disorders: Yes (CPP) 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 Genitourinary Hx Genitourinary Disorders: No Gastrointestinal Hx Gastrointestinal Disorders: Yes Gastrointestinal Disorders: Colitis, Gastroesophageal Reflux, Irritable Bowel Musculoskeletal Hx Musculoskeletal Disorders: No Endocrine Hx Endocrine Disorders: No HEENT HX ENT Disorders: No Cancer Hx Cancer: No Psychosocial Hx Psychiatric Problems: No Integumentary HX Skin/Integumentary Disorder: No Blood Transfusions Hx Blood Disorders: No Physical Exam Vital Signs Vital Sign - Last 12Hours 01/03/17 00:52 Temp 97.4 Pulse 82 Resp 18 B/P (MAP) 137/91 Pulse Ox 99 O2 Delivery Room Air Capillary Refill : Less Than 3 Seconds General Appearance: WD/WN, mild distress HEENT: PERRL/EOMI, normal ENT inspection, TM abnormal (R) (clear mucoid effusion), TM abnormal (L) (clear mucoid effusion) Neck: non-tender, supple, normal inspection Cardiovascular: normal peripheral pulses, regular rate, rhythm, no edema Respiratory: chest non-tender, lungs clear, normal breath sounds Gastrointestinal: normal bowel sounds, non tender, soft Extremities: normal inspection, normal capillary refill Psychiatric: alert, oriented x 3 Crainal Nerves: normal hearing, normal speech, PERRL Motor/Sensory: no motor deficit, no sensory deficit Skin: normal color, warm/dry Progress/Results/Core Measures Results/Orders My Orders Orders - DIONI BORDEN Saline Lock/Iv-Start (01/03/17 01:10) Ns Iv 1000 Ml (Sodium Chloride 0.9%) (01/03/17 01:10) Prochlorperazine Injection (Compazine In (01/03/17 01:15) Sumatriptan Injection (Imitrex Injection (01/03/17 01:15) Medications Given in ED Current Medications Medications Dose Ordered Sig/Irma Route Start Time Stop Time Status Last Admin Dose Admin Prochlorperazine Edisylate 10 mg ONCE ONCE IV 01/03/17 01:15 01/03/17 01:16 DC 01/03/17 01:31 10 MG Sodium Chloride 1,000 ml @ 0 mls/hr Q0M ONCE IV 01/03/17 01:10 01/03/17 01:12 DC 01/03/17 01:30 0 MLS/HR Sumatriptan Succinate 6 mg ONCE ONCE SQ 01/03/17 01:15 01/03/17 01:16 DC 01/03/17 01:31 6 MG Vital Signs/I&O Vital Sign - Last 12Hours 01/03/17 00:52 Temp 97.4 Pulse 82 Resp 18 B/P (MAP) 137/91 Pulse Ox 99 O2 Delivery Room Air Blood Pressure Mean: 106 Departure Impression Impression: Primary Impression: Migraine Qualified Codes: G43.009 - Migraine without aura, not intractable, without status migrainosus Additional Impression: Otitis media with effusion Qualified Codes: H65.93 - Unspecified nonsuppurative otitis media, bilateral Disposition: 01 HOME, SELF-CARE Condition: Improved Departure-Patient Inst. Decision time for Depature: 02:02 Referrals: [facility] (PCP) Primary Care Physician BERNIE KINGSLEY (Family) Primary Care Physician Patient Instructions: Migraine Headache (DC) Add. Discharge Instructions: Get plenty or rest drink plenty of clear fluids and follow up with your primary care physician to talk about further migraine management. You should treat your otitis media effusion with Flonase 1 puff each nostril twice daily for 2 weeks. Look for other triggers might be bringing on your migraines as well. All discharge instructions reviewed with patient and/or family. Voiced understanding. Copy Copies To 1: TRELL CATSILLO TITUS J Jan 03, 2017 01:10
[2017-01-03] MEDS ORDERED: PROCHLORPERAZINE 10 MG/2ML INJ (COMPAZINE) IV ONE (01:15)
[2017-01-03] MEDS ORDERED: SUMAtriptan 6 MG/0.5 ML (IMITREX) INJ SQ ONE (01:15)
[2017-01-03 02:07] VITALS: BP 137/94
== END 2017-01-03 02:06 | disposition home or self-care (01) ==
LOC: EDUNIT# 23:48 → ER 23:51
DX: G43.909 Migraine, unspecified, not intractable, without status migrainosus (principal); H65.93 Unspecified nonsuppurative otitis media, bilateral; J45.909 Unspecified asthma, uncomplicated; K21.9 Gastro-esophageal reflux disease without esophagitis; Z87.19 Personal history of other diseases of the digestive system; Z87.891 Personal history of nicotine dependence; Z90.711 Acquired absence of uterus with remaining cervical stump; Z90.49 Acquired absence of other specified parts of digestive tract; Z98.51 Tubal ligation status
CPT/HCPCS: 96361; 96372; 96374

== ENCOUNTER → 2017-10-31 | Outpatient (CLI) | payer MEDICAID ==
[~2017-10-31] MED LIST changes: +SUMA25TA3 PO
--- NOTE | 2017-10-31 13:48 | Diagnostic Imaging Report ---
INDICATION: Chronic pelvic pain TECHNIQUE: Multiple real time ortiz scale sonographic images were obtained of the pelvis transabdominally and transvaginally. CORRELATION STUDY: None FINDINGS: The uterus and ovaries are not visualized compatible with surgical history. No suggestion for abnormal pelvic mass lesion or significant pelvic fluid collection. IMPRESSION: 1. Post hysterectomy and likely bilateral oophorectomy. Dictated by: Dictated on workstation # [id number]
== END ==
LOC: RAD 12:44
PROVIDERS: ATTEND Obstetrics & Gynecology
DX: R10.2 Pelvic and perineal pain (principal); Z90.710 Acquired absence of both cervix and uterus
CPT/HCPCS: 76830; 76856

== ENCOUNTER 2017-11-24 05:28 | Outpatient (CLI) | payer MEDICAID ==
[~2017-11-24] VITALS: Ht 157.5 cm; Wt 96.2 kg
[2017-11-24] MEDS ORDERED: MULT1TAB69 PO (10:15)
[2017-11-24] MEDS ORDERED: METO-333 PO (10:37)
[2017-11-24] MEDS ORDERED: SUMA100T3 PO (10:37)
[2017-11-24] MEDS ORDERED: RT-ALBUINH IH (10:37)
[2017-11-24] MEDS ORDERED: FLUO10TA PO (10:37)
[2017-11-24] MEDS ORDERED: TRAM50TA2 PO (10:37)
[2017-11-24] MEDS ORDERED: TRAZ-189 PO (10:37)
[2017-11-24] MEDS ORDERED: FAMO-119 PO (10:37)
[2017-11-24] MEDS ORDERED: FLUO20CA25 PO (10:37)
[2017-11-24] MEDS ORDERED: PHEN15CA PO (10:37)
[2017-11-30] MEDS ORDERED: ACHD5005 PO (09:21)
[2017-11-30] MEDS ORDERED: IBUP-1773 PO (09:21)
== END 2017-11-24 10:41 ==
LOC: PREOP 05:28
PROVIDERS: ATTEND Obstetrics & Gynecology
DX: Z01.818 Encounter for other preprocedural examination (principal); R10.2 Pelvic and perineal pain; N80.9 Endometriosis, unspecified

== ENCOUNTER 2017-11-30 07:27 | Day surgery (SDC) | payer MEDICAID ==
[~2017-11-30] VITALS: Ht 157.5 cm; Wt 96.2 kg
[~2017-11-30 07:27] MED LIST changes: +FLUO10TA PO; +METO-333 PO; +MULT1TAB69 PO; +PHEN15CA PO; +RT-ALBUINH IH; +SUMA100T3 PO; +TRAZ-189 PO
[2017-11-30 07:45] VITALS: BP 117/88
[2017-11-30] MEDS ORDERED: FAMOTIDINE 20MG/2ML IV (PEPCID) IV ONE (08:00)
[2017-11-30] MEDS ORDERED: SCOPOLAMINE 1.5 MG (TRANSDERM-SCOP) PATCH TOP ONE (08:00)
[2017-11-30] MEDS ORDERED: ONDANSETRON 4 MG/2 ML (SDV) Z0FRAN IV ONE (08:00)
[2017-11-30 08:19] LABS: BASOPHILS % (AUTO) 0 % (0-10); EOSINOPHILS # (AUTO) 0.5 10^3/uL (0.0-0.3); EOSINOPHILS % (AUTO) 6 % (0-10); HEMATOCRIT 38 % (35-52); HEMOGLOBIN 13.3 G/DL (11.5-16.0); LYMPHOCYTES # (AUTO) 2.5 X 10^3 (1.0-4.0); LYMPHOCYTES % (AUTO) 30 % (12-44); MEAN CORPUSCULAR HEMOGLOBIN 31 PG (25-34); MEAN CORPUSCULAR HGB CONC 35 G/DL (32-36); MEAN CORPUSCULAR VOLUME 87 FL (80-99); MEAN PLATELET VOLUME 8.4 FL (7.4-10.4); MONOCYTES # (AUTO) 0.6 X 10^3 (0.0-1.0); MONOCYTES % (AUTO) 7 % (0-12); NEUTROPHILS # (AUTO) 4.7 X 10^3 (1.8-7.8); NEUTROPHILS % (AUTO) 57 % (42-75); PLATELET COUNT 366 10^3/uL (130-400); RED BLOOD COUNT 4.36 10^6/uL (4.35-5.85); RED CELL DISTRIBUTION WIDTH 12.3 % (10.0-14.5); WHITE BLOOD COUNT 8.2 10^3/uL (4.3-11.0)
[2017-11-30] MEDS ORDERED: ATRACURIUM 50 MG/5 ML (TRACRIUM) IV ONE ×2 (08:23→08:32)
[2017-11-30] MEDS ORDERED: SEVOFLURANE (ULTANE) 15 ML INHAL SOLN ONE ×5 (08:24→10:26)
[2017-11-30] MEDS ORDERED: LIDOCAINE PF 2% 5 ML (XYLOCAINE) VIAL ONE (08:24)
[2017-11-30] MEDS ORDERED: proPOfol 200 MG/20 ML (DIPRIVAN) VIAL IV ONE (08:24)
[2017-11-30] MEDS ORDERED: LACTATED RINGERS 1,000 ML IV ONE (08:24)
[2017-11-30] MEDS ORDERED: HURRICAINE EXT TUBE (BENZOCAINE) ONE (08:24)
[2017-11-30] MEDS ORDERED: DEXAMETHASONE 10 MG/ML (DECADRON) 1 ML VIAL ONE (08:24)
[2017-11-30] MEDS ORDERED: MIDAZOLAM 2 MG/2 ML (VERSED) VIAL ONE (08:24)
[2017-11-30] MEDS ORDERED: fentaNYL INJECTION 100 MCG/2 ML AMP ONE ×2 (08:25→09:43)
[2017-11-30] MEDS ORDERED: ONDANSETRON 4 MG/2 ML (SDV) Z0FRAN ONE (08:32)
[2017-11-30] MEDS: LACTATED RINGERS 1,000 ML IV PRN ×2 (08:33→09:55)
[2017-11-30] MEDS ORDERED: BUPIVACAINE 0.25% 30 ML (SENSORCAINE) VIAL ONE (08:37)
[2017-11-30] MEDS ORDERED: KETOROLAC 30 MG/ML VIAL IVP ONE (09:15)
[2017-11-30] MEDS ORDERED: D5 LR IV SOLUTION 1,000 ML IV SCH (09:15)
[2017-11-30] MEDS ORDERED: ONDANSETRON 4 MG/2 ML (SDV) Z0FRAN IVP PRN ×2 (09:15→10:30)
[2017-11-30] MEDS ORDERED: HYDROcodone/APAP 5 MG/325 MG (LORTAB) TAB PO PRN (09:15)
--- NOTE | 2017-11-30 09:15 | Progress Note-Pre Operative ---
Pre-Operative Progress Note H&P Reviewed The H&P was reviewed, patient examined and no changes noted. Date Seen by Provider: Nov 30, 2017 Time Seen by Provider: 09:11 Date H&P Reviewed: Nov 30, 2017 Time H&P Reviewed: 09:00 Pre-Operative Diagnosis: CPP, Endometriosis SEAN MORENO DO Nov 30, 2017 9:15 am
--- NOTE | 2017-11-30 09:20 | Discharge Inst-Women's Service ---
Discharge Inst-Women's Serv Depart Medication/Instructions New, Converted or Re-Newed RX: RX on Chart Consults/Follow Up Additional Follow Up: Yes Orders/Referrals Dr. moreno in 1-2 weeks Activity Activity: Activity as Tolerated Driving Instructions: You May Drive (do not drive while taking hydrocodone) NO SMOKING: NO SMOKING Diet Discharge Diet: No Restrictions Symptoms to Report to : Bleeding Excessive, Pain Increased, Fever Over 101 Degrees F, Vaginal Bleeding Increase, Questions/Concerns For Any Problems or Questions: Contact Your Physician Skin/Wound Care Infection Signs and Symptoms: Increased Redness, Foul Odor of Wound, Increased Drainage, Skin Itchy or Has a Rash, Increased Swelling, Temperature Above 101 F Operative Area Clean and Dry: Keep Incision Clean/Dry Stitches/[place]/Dermabond: Dermabond, Care of Stitches SEAN MORENO DO Nov 30, 2017 9:20 am
[2017-11-30] MEDS ORDERED: IBUP-1773 PO (09:21)
[2017-11-30] MEDS ORDERED: ACHD5005 PO (09:21)
[2017-11-30] MEDS ORDERED: morphine INJ 10 MG/ML 1ML (SYR OR VIAL) ONE (10:21)
[2017-11-30] MEDS ORDERED: NEOSTIGMINE 1 MG/ML 5 ML SYRINGE ONE (10:25)
[2017-11-30] MEDS ORDERED: GLYCOPYRROLATE 0.2 MG/ML (ROBINUL) 2 ML VIAL ONE (10:25)
[2017-11-30] MEDS: morphine INJ 10 MG/ML 1ML (SYR OR VIAL) IVP PRN ×2 (10:29→10:33)
[2017-11-30] MEDS ORDERED: MEPERIDINE (DEMEROL) INJ 50 MG/ML IVP PRN (10:30)
[2017-11-30] MEDS ORDERED: HYDROmorphone 1 MG/ML (DILAUDID) 1 ML SYRINGE IV PRN (10:30)
[2017-11-30] MEDS ORDERED: HYDROmorphone 1 MG/ML (DILAUDID) 1 ML SYRINGE ONE (10:37)
[2017-11-30 11:10] VITALS: BP 124/79
[2017-11-30 11:40] VITALS: BP 112/76
[2017-11-30 12:10] VITALS: BP 108/79
[2017-11-30 12:15] VITALS: BP 108/79
--- NOTE | 2017-11-30 12:30 | Anesthesia-General Post-Op ---
General Patient Condition Mental Status/LOC: Same as Preop Cardiovascular: Satisfactory Nausea/Vomiting: Absent Respiratory: Satisfactory Pain: Controlled Complications: Absent Post Op Complications Complications None Follow Up Care/Instructions Patient Instructions None needed. Anesthesia/Patient Condition Patient Condition Patient is doing well, no complaints, stable vital signs, no apparent adverse anesthesia problems. No complications reported per nursing. D/C home per [facility] [place] [facility] [place]: Yes ANGELI EMERY CRNA Nov 30, 2017 12:30
--- NOTE | 2017-11-30 15:17 | OPERATIVE REPORT ---
DATE OF SERVICE: 11/30/2017 PREOPERATIVE DIAGNOSIS: A 32-year-old female with chronic pelvic pain and history of endometriosis. POSTOPERATIVE DIAGNOSIS: A 32-year-old female with chronic pelvic pain and history of endometriosis. PROCEDURE: Operative laparoscopy with excision of peritoneal left pelvic endometriosis implant. SURGEON: Viraj Bella DO AERODYNAMICS TEACHER: KIMANI Wang ANESTHESIA: General endotracheal. ESTIMATED BLOOD LOSS: Minimal. URINE OUTPUT: 220 mL clear at the end of the procedure. FLUIDS: 1000 mL of lactated Ringer solution. FINDINGS: A grossly normal appearing pelvic floor with evidence of previous hysterectomy and bilateral salpingo-oophorectomy. Normal appearing upper abdominal anatomy. No postoperative adhesions appreciated. There is a retroperitoneal left pelvic sidewall endometriosis implant. SPECIMEN SENT: Biopsy of the left pelvic peritoneum. INDICATIONS FOR PROCEDURE: This is a 32-year-old female, who the patient had self-consulted herself to my office for concerns with endometriosis and worsening pelvic pain. The patient had undergone hysterectomy, bilateral salpingo-oophorectomy in the past, was on hormone replacement therapy and reported that her pain has substantially gotten worse in the past 4 to 6 months. We attempted to stop hormone therapy to see if this alleviated her pain and stimulation of endometriosis; however, it seemed to have gotten worse and the patient was opting to proceed with operative laparoscopy and ablation of endometriosis implants that she has underwent this surgery in the past and had alleviated her pain in the past. Risks of this procedure were discussed with the patient in detail as well as alternatives on waiting. I was more favorable to have the patient wait; however, she said that her pain was unmanageable and unbearable and she wished to proceed with laparoscopy. After the risks was discussed with the patient in detail including risks of bleeding, infection, damage to surrounding structures including, but not limited to bowel, bladder, ureter, kidneys, positive postoperative and preoperative complications, postoperative recovery timeframe as well as risk from anesthesia was discussed. After everything was discussed with the patient, consent was obtained in the preoperative area and the patient was taken to the operating room. OPERATIVE REPORT IN DETAIL: Once in the operating room, general anesthesia was found to be adequate. She was placed in dorsal lithotomy position, prepped and draped in normal sterile fashion. Stearns catheter was placed using sterile technique. Timeout was performed. A sponge stick was placed in the patient's vagina for vaginal retraction. I then performed a change of gloves and took my attention to the abdomen where infraumbilically I infiltrated this area using 0.25% Marcaine and make a 5 mm incision and directed a Veress needle through the incision until intraperitoneal placement was confirmed using a saline drop test. I then proceeded with insufflation using CO2 gas and opening pressure of 7 mmHg was noted. I proceeded to maximum pressure of 15 mmHg, at which point I removed the Veress needle and introduced a 5 mm blunt trocar. Once this was in place, I am able to confirm intraperitoneal placement using the laparoscope. A brief scanning of the upper abdominal anatomy appears within normal limits and grossly normal. I then had the patient placed in steep Trendelenburg and I am able to visualize all the pelvic findings as described in my findings above. I have to place a second trocar in order to excise and biopsy this left pelvic peritoneal endometriosis implant. This is also a 5 mm trocar that was placed suprapubically in similar fashion. The skin was infiltrated using 0.25% Marcaine. A 5 mm incision was made and the trocar was placed under direct visualization of the laparoscope. Once this is in place, I am able to confirm intraperitoneal placement and directed placement using laparoscope. I then took the hook cautery and created a window in the peritoneum, which exposed this darkened tissue apparent to be an endometriosis implant. It is then easily removed by grasping with a long grasper and pulling it off of the left pelvic sidewall. There was no active bleeding noted from the removal of this and it was sent as left pelvic endometriosis implant. After which, there was no active bleeding noted from any of my dissection planes. The remainder of the pelvis looked normal. I then released insufflation of the CO2 gas using my trocar site and introduced 0.25% Marcaine through the peritoneal cavity for postoperative pain management. I then removed both the trocars. The skin was then closed using Dermabond. The patient tolerated the procedure well and taken to recovery area in stable condition after the lap, sponge is removed from the vagina and the sponge stick was removed from the vagina. Stearns catheter was removed as well. Job ID: [id number] DocumentID: [id number] Dictated Date: 11/30/2017 10:30:42 Cloth Tester Quality Date: 11/30/2017 15:15:44 Dictated By: DO BRIELLE OWUSU
== END 2017-11-30 12:25 | disposition home or self-care (01) ==
LOC: SDC 07:27
PROVIDERS: ATTEND Obstetrics & Gynecology
DX: N80.3 Endometriosis of pelvic peritoneum (principal); I10 Essential (primary) hypertension; J45.909 Unspecified asthma, uncomplicated; Z87.891 Personal history of nicotine dependence; Z79.899 Other long term (current) drug therapy
CPT/HCPCS: 36415; 85025; 86850; 86900; 86901; 87081; 94664

== ENCOUNTER → 2018-08-30 | Outpatient (CLI) | payer MEDICAID ==
[~2018-08-30] MED LIST changes: +ACHD5005 PO; +IBUP-1773 PO
[2018-08-30 14:47] LABS: BASOPHILS # (AUTO) 0.1 10^3/uL (0.0-0.1); BASOPHILS % (AUTO) 0 % (0-10); EOSINOPHILS # (AUTO) 0.5 10^3/uL (0.0-0.3); EOSINOPHILS % (AUTO) 5 % (0-10); HEMATOCRIT 39 % (35-52); HEMOGLOBIN 13.1 G/DL (11.5-16.0); LYMPHOCYTES # (AUTO) 4.1 X 10^3 (1.0-4.0); LYMPHOCYTES % (AUTO) 34 % (12-44); MEAN CORPUSCULAR HEMOGLOBIN 30 PG (25-34); MEAN CORPUSCULAR HGB CONC 34 G/DL (32-36); MEAN CORPUSCULAR VOLUME 89 FL (80-99); MEAN PLATELET VOLUME 8.4 FL (7.4-10.4); MONOCYTES # (AUTO) 0.8 X 10^3 (0.0-1.0); MONOCYTES % (AUTO) 7 % (0-12); NEUTROPHILS # (AUTO) 6.4 X 10^3 (1.8-7.8); NEUTROPHILS % (AUTO) 54 % (42-75); PLATELET COUNT 432 10^3/uL (130-400); RED CELL DISTRIBUTION WIDTH 13.4 % (10.0-14.5); WHITE BLOOD COUNT 11.8 10^3/uL (4.3-11.0)
[2018-08-30 15:04] LABS: BUN/CREATININE RATIO 12; CREATININE SERUM 0.75 MG/DL (0.60-1.30); GFR ESTIMATED > 60
[2018-08-31 05:50] LABS: ALTERNARIA MOLD RAST <0.35 kU/L (<0.35); RAGWEED RAST <0.35 kU/L (<0.35)
== END ==
LOC: LAB 14:24
PROVIDERS: ATTEND Nurse Practitioner Family
DX: J30.9 Allergic rhinitis, unspecified (principal); R06.00 Dyspnea, unspecified; R06.89 Other abnormalities of breathing; R05 Cough
CPT/HCPCS: 36415; 82565; 82785; 84520; 85025; 86003

== ENCOUNTER → 2018-09-05 | Outpatient (CLI) | payer MEDICAID ==
[~2018-09-05] MED LIST changes: +HOLD METFORMIN - RECEIVED CONTRAST 20 ML VIAL IV SCH; +IOHEXOL 350 MG/ML 100 ML (OMNIPAQUE 350) VIAL IV ONE
--- NOTE | 2018-09-05 14:33 | Diagnostic Imaging Report ---
PROCEDURE: CT chest with contrast only. TECHNIQUE: Multiple contiguous axial images were obtained through the chest after administration of intravenous contrast. Auto Exposure Controls were utilized during the CT exam to meet ALARA standards for radiation dose reduction. INDICATION: Asthma, increasing in severity. Patient complains of cough and dyspnea. COMPARISON: No prior CT studies are available for comparison. FINDINGS: No definite axillary, hilar, or mediastinal lymphadenopathy is detected. No pericardial or pleural fluid is identified. The central airways are patent. There is minimal scarring in the lingula. Otherwise, the lungs are clear. No infiltrates, nodules, or masses are seen. Upper abdomen is unremarkable. IMPRESSION: Unremarkable CT of the chest with contrast. Dictated by: Dictated on workstation # [id number]
== END ==
LOC: RAD 10:23
PROVIDERS: ATTEND Nurse Practitioner Family
DX: J45.909 Unspecified asthma, uncomplicated (principal)
CPT/HCPCS: 71260

== ENCOUNTER → 2018-09-14 | Outpatient (CLI) | payer MEDICAID ==
[~2018-09-14] MED LIST changes: -HOLD METFORMIN - RECEIVED CONTRAST 20 ML VIAL IV SCH; -IOHEXOL 350 MG/ML 100 ML (OMNIPAQUE 350) VIAL IV ONE; +RT-ALBUTEROL SULF 2.5 MG/3 ML PRE-MIX VIAL INH ONE
== END ==
LOC: RT 12:50
PROVIDERS: ATTEND Nurse Practitioner Family
DX: J30.9 Allergic rhinitis, unspecified (principal); R06.00 Dyspnea, unspecified; R06.89 Other abnormalities of breathing; R05 Cough; G47.10 Hypersomnia, unspecified; G47.50 Parasomnia, unspecified
CPT/HCPCS: 94060; 94726; 94729

== ENCOUNTER 2018-09-19 15:06 | Outpatient (CLI) | payer MEDICAID, OTHER ==
[~2018-09-19 15:06] MED LIST changes: -RT-ALBUTEROL SULF 2.5 MG/3 ML PRE-MIX VIAL INH ONE
== END 2018-09-19 15:40 | disposition home or self-care (01) ==
LOC: SLEEP 15:06
PROVIDERS: ATTEND Nurse Practitioner Family
DX: G47.10 Hypersomnia, unspecified (principal); G47.50 Parasomnia, unspecified; R06.00 Dyspnea, unspecified; R06.89 Other abnormalities of breathing; R05 Cough; J30.9 Allergic rhinitis, unspecified

== ENCOUNTER 2019-07-14 09:49 | Emergency (ER) | payer MEDICAID ==
[~2019-07-14] VITALS: Ht 157.5 cm; Wt 106.6 kg
[~2019-07-14 09:49] MED LIST changes: +FLUO20CA46 PO; -TRAM50TA2 PO; -TRAZ-189 PO; +TRZ50T PO
[2019-07-14] MEDS ORDERED: KETOROLAC 60 MG/2 ML VIAL IM STA (11:21)
--- NOTE | 2019-07-14 11:29 | ED Hip Pain/Injury ---
General Chief Complaint: Hip/Pelvic Problems Stated Complaint: BILAT HIP PAIN Nursing Triage Note: Pt to room #5 with c/o bilat hip discomfort. Pt reports discomfort began in her R hip on 07/10/19 et has spread to her L hip. Pt reports decrease in ability to ambulate d/t pain. Pt reports on this day she developed swelling to Lt lower extremity. Pt reports intermittent pins et needle sensation. Pt denies injury. Pt tearful during triage. S/o at side. History of Present Illness Date Seen by Provider: Jul 14, 2019 Time Seen by Provider: 11:15 Initial Comments 34 year old female with bilat hip, low back, and leg pain. She has known history of lumbar disk disease, her insurance would not approve MRI until she tried PT. She wasn't able to attend PT because she works [employer]. She has taken Tramadol, Flexeril, and Hydrocodone in the last few days for her symptoms, with no improvement. She did not take any of these medications today. Timing/Duration: getting worse Location: hip (R), hip (L), other (low back) Method of Injury: unknown Associated Symptoms: muscle aches, pain radiating to knees, trouble walking Allergies and Home Medications Allergies Coded Allergies: No Known Drug Allergies (Unverified , 10/30/08) Home Medications Albuterol Sulfate 1 Puff Puff, 2 PUFF IH Q4H PRN for WHEEZING, (Reported) 1 PUFF = 90 MCG Famotidine 20 Mg Tablet, 20 MG PO BID, (Reported) Fluoxetine HCl 20 Mg Capsule, 20 MG PO DAILY, (Reported) take with 10mg dose Fluoxetine HCl 10 Mg Tablet, 10 MG PO DAILY, (Reported) take with 20mg dose Hydrocodone Bit/Acetaminophen 1 Tab Tab, 1 TAB PO Q4H PRN for PAIN-MODERATE Prescribed by: SEAN MORENO on 11/30/17920 Ibuprofen 600 Mg Tablet, 600 MG PO Q6H Prescribed by: SEAN MORENO on 11/30/17920 Metoprolol Tartrate 25 Mg Tablet, 25 MG PO BID, (Reported) Multivitamin 1 Each Tablet, 1 EACH PO DAILY, (Reported) Phentermine HCl 15 Mg Capsule, 15 MG PO DAILY, (Reported) Prednisone 20 Mg Tab, 60 MG PO DAILY Prescribed by: TOM HAIRSTON on 07/14/19 1208 Sumatriptan Succinate 100 Mg Tablet, 100 MG PO UD PRN for MIGRAINE, (Reported) Topiramate 25 Mg Tablet, 25 MG PO BID, (Reported) Tramadol HCl 50 Mg Tablet, 50 MG PO DAILY PRN for PAIN-MILD, (Reported) Trazodone HCl 50 Mg Tablet, 50 MG PO HS, (Reported) Patient Home Medication List Home Medication List Reviewed: Yes Review of Systems Constitutional: no symptoms reported, see HPI Musculoskeletal: see HPI, back pain, joint pain ( bilateral hips), muscle pain; No neck pain All Other Systems Reviewed Negative Unless Noted: Yes Past Kuskhaj-Lqtmhr-Btauyc Hx Past Med/Social Hx: Reviewed Nursing Past Med/Soc Hx Patient Social History Alcohol Use: Rarely Uses Number of Drinks Today: 0 Alcohol Beverage of Choice: Wine Recreational Drug Use: No Smoking Status: Former Smoker Type Used: Cigarettes Former Smoker, Quit: Sep 13, 2015 2nd Hand Smoke Exposure: No Recent Foreign Travel: No Contact w/Someone Who Travel: No Recent Infectious Disease Expo: No Recent Hopitalizations: No Immunizations Up To Date Tetanus Booster (TDap): Unknown Date of Influenza Vaccine: Mar 01, 2010 Seasonal Allergies Seasonal Allergies: Yes Past Medical History Surgeries: Yes (PARTIAL HYSTERECTOMY WITH LSO, right oopherectomy) Abdominal, Adenoidectomy, Appendectomy, Section, Gallbladder, Hysterectomy, Oophorectomy, Tonsillectomy, Tubal Ligation Respiratory: Yes Asthma Cardiac: No Neurological: Yes Headaches /Migraines Reproductive Disorders: Yes (CPP) Female Reproductive Disorders: Endometriosis [employer]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 0.0oz. 96.522201xb; 42.00 BMI Method:Stated General Appearance: No Apparent Distress, WD/WN Neck: Full Range of Motion, Normal Inspection, Non Tender, Supple Cardiovascular: Regular Rate, Rhythm, No Edema, No Murmur, Normal Peripheral Pulses Respiratory: Chest Non Tender, Lungs Clear, Normal Breath Sounds Back: Normal Inspection, Decreased Range of Motion (secondary to pain), Muscle Spasm; No Vertebral Tenderness; Other (limitation of motion bilateral hip secondary to pain. Neurovascular status intact bilateral lower extremities, L4 to S1 V/V. ) Neurologic/Psychiatric: Alert, Oriented x3, No Motor/Sensory Deficits, Normal Mood/Affect Skin: Normal Color, Warm/Dry Progress/Results/Core Measures Results/Orders My Orders Orders - TOM HAIRSTON Pelvis (07/14/19 11:21) Lumbar Spine - 2-3 Views (07/14/19 11:21) Orphenadrine Injection (Norflex Injectio (07/14/19 11:30) Ketorolac Injection (Toradol Injection) (07/14/19 11:21) Medications Given in ED Current Medications Medications Dose Ordered Sig/Irma Route Start Time Stop Time Status Last Admin Dose Admin Orphenadrine Citrate 60 mg ONCE ONCE IM 07/14/19 11:30 07/14/19 11:31 DC 07/14/19 11:38 60 MG Vital Signs/I&O 07/14/19 10:20 Temp 36.5 Pulse 81 Resp 20 B/P (MAP) 135/95 (108) Pulse Ox 99 O2 Delivery Room Air Blood Pressure Mean: 108 Diagnostic Imaging Diagonstic Imaging: Xray Plain Films/CT/US/NM/MRI: other (lumbar spine) Comments NAME: VIONNE KERR [facility] REC#: [id number] PT STATUS: REG ER : 1985 PHYSICIAN: TOM HAIRSTON ADMIT DATE: 07/14/19/ER Signed Date of Exam:07/14/19 LUMBAR SPINE - 2-3 VIEWS EXAMINATION: Lumbosacral spine 2 or 3 views HISTORY: Low back pain. COMPARISON: None available. FINDINGS: There is no acute fracture or dislocation of the lumbar spine. There is grade 1 anterolisthesis of L5 on S1. Bilateral pars defects are likely at L5. The vertebral body heights are well maintained. No significant degenerative changes are present in the lumbar spine. The included soft tissues are unremarkable. IMPRESSION: 1. No acute fracture or dislocation in the lumbar spine. 2. Likely bilateral pars defects at L5 with grade 1 anterolisthesis of L5 on S1. Dictated by: Dictated on workstation # [id number] Dict: 07/14/19 1141 Trans: 07/14/19 1142 [facility] [id number] Interpreted by: SHLOMO MARTIN DO Electronically signed by: SHLOMO MARTIN DO 07/14/19 1142 Reviewed: Reviewed by Me Diagonstic Imaging: Xray Plain Films/CT/US/NM/MRI: pelvis Comments NAME: IVONNE KERR [facility] REC#: [id number] PT STATUS: REG ER : 1985 PHYSICIAN: TOM HAIRSTON ADMIT DATE: 07/14/19/ER Signed Date of Exam:07/14/19 PELVIS CLINICAL HISTORY: Low back pain. COMPARISON: 09/18/2016. TECHNIQUE: Single view of the pelvis was obtained. FINDINGS: There is no acute fracture or dislocation of the pelvis. Alignment is anatomic. The bilateral SI joints are well aligned. The imaged joint spaces are preserved. The included soft tissues are unremarkable. IMPRESSION: 1. No acute fracture or dislocation in the pelvis and bilateral hips. Dictated by: Dictated on workstation # [id number] Dict: 07/14/19 1142 Trans: 07/14/19 1149 CV [id number] Interpreted by: SHLOMO MARTIN DO Electronically signed by: SHLOMO MARTIN DO 07/14/19 1149 Departure Impression Primary Impression: Chronic back pain Qualified Codes: M54.42 - Lumbago with sciatica, left side; M54.41 - Lumbago with sciatica, right side; G89.29 - Other chronic pain Additional Impression: Lumbar radiculopathy, acute Disposition: 01 HOME, SELF-CARE Condition: Stable Departure-Patient Inst. Decision time for Depature: 12:05 Referrals: NO,LOCAL PHYSICIAN (PCP/Family) Primary Care Physician Patient Instructions: Low Back Pain (DC), Radiculopathy (DC) Add. Discharge Instructions: Alternate heat and ice to your low back for 20 minutes every 2 hours while awake. Continue to use the home pain medications that you have previously prescribed, as directed. Take the prednisone for the next 3 days as prescribed. Follow-up with your primary care provider. Call physical therapy, for after-hours availability at [facility] or [facility]. Return to the emergency department for new, urgent health care needs. All discharge instructions reviewed with patient and/or family. Voiced understanding. Scripts Prednisone (Prednisone) 20 Mg Tab 60 MG PO DAILY for 3 Days, #9 TAB 0 Refills Prov: TOM HAIRSTON 07/14/19 Copy Copies To 1: CHUCK SHEARER MD, AMY ARNP Jul 14, 2019 11:29
[2019-07-14] MEDS ORDERED: ORPHENADRINE 60 MG/2 ML (NORFLEX) AMP IM ONE (11:30)
--- NOTE | 2019-07-14 11:43 | Diagnostic Imaging Report ---
EXAMINATION: Lumbosacral spine 2 or 3 views HISTORY: Low back pain. COMPARISON: None available. FINDINGS: There is no acute fracture or dislocation of the lumbar spine. There is grade 1 anterolisthesis of L5 on S1. Bilateral pars defects are likely at L5. The vertebral body heights are well maintained. No significant degenerative changes are present in the lumbar spine. The included soft tissues are unremarkable. IMPRESSION: 1. No acute fracture or dislocation in the lumbar spine. 2. Likely bilateral pars defects at L5 with grade 1 anterolisthesis of L5 on S1. Dictated by: Dictated on workstation # [id number]
--- NOTE | 2019-07-14 11:45 | Diagnostic Imaging Report ---
CLINICAL HISTORY: Low back pain. COMPARISON: 09/18/2016. TECHNIQUE: Single view of the pelvis was obtained. FINDINGS: There is no acute fracture or dislocation of the pelvis. Alignment is anatomic. The bilateral SI joints are well aligned. The imaged joint spaces are preserved. The included soft tissues are unremarkable. IMPRESSION: 1. No acute fracture or dislocation in the pelvis and bilateral hips. Dictated by: Dictated on workstation # [id number]
[2019-07-14] MEDS ORDERED: PRD20T PO (12:08)
[2019-07-14 12:14] VITALS: BP 124/89
== END 2019-07-14 12:19 | disposition home or self-care (01) ==
LOC: EDUNIT# 09:49 → ER 09:51
DX: M54.16 Radiculopathy, lumbar region (principal); G89.29 Other chronic pain; J45.909 Unspecified asthma, uncomplicated; G43.909 Migraine, unspecified, not intractable, without status migrainosus; K21.9 Gastro-esophageal reflux disease without esophagitis; Z87.891 Personal history of nicotine dependence
CPT/HCPCS: 72100; 72170

== ENCOUNTER 2019-08-09 13:43 | Outpatient (RCR) | payer MEDICAID ==
[~2019-08-09 13:43] MED LIST changes: +PRD20T PO
[2019-10-08] MEDS ORDERED: NAPR-1071 PO (15:47)
== END 2019-10-15 | disposition home or self-care (01) ==
PROVIDERS: ATTEND Obstetrics & Gynecology
DX: R10.2 Pelvic and perineal pain (principal)

== ENCOUNTER 2019-10-08 13:59 | Emergency (ER) | payer MEDICAID ==
[~2019-10-08] VITALS: Ht 157.4 cm; Wt 107.2 kg
--- NOTE | 2019-10-08 14:25 | ED Chest Pain ---
General Stated Complaint: CP,SOA Source: patient Exam Limitations: no limitations History of Present Illness Date Seen by Provider: October 08, 2019 Time Seen by Provider: 14:05 Initial Comments Patient presents to ER by private conveyance with chief complaint of chest pain all her life but in the past 2 days she says she's been feeling very short of breath even at rest. She says she is having increasing pain intermittently that is worse with deep inspiration from her right breast bone all the way back through to above her right scapula. She has no history of coronary disease but she does take inhaled corticosteroids, Breo, and albuterol for her lifelong history of asthma and is followed by Dr. Castellano, pulmonology. She's taken her breathing treatments at routine intervals without improvement in her shortness of air or pain. She says for the past week she's been in the middle of moving so she's thinks she stirred something up and caused her asthma to flare up. She has not taken anything for the pain. She's had no productive cough, fever or acid reflux. No nausea vomiting sweats. No personal or family history of early-onset coronary disease. She has had her gallbladder, appendix and uterus and ovaries removed secondary to endometriosis several years ago. She does admit to a history of GERD. Allergies and Home Medications Allergies Coded Allergies: No Known Drug Allergies (Unverified , 10/30/08) Home Medications Albuterol Sulfate 1 Puff Puff, 2 PUFF IH Q4H PRN for WHEEZING, (Reported) 1 PUFF = 90 MCG Famotidine 20 Mg Tablet, 20 MG PO BID, (Reported) Fluoxetine HCl 20 Mg Capsule, 20 MG PO DAILY, (Reported) take with 10mg dose Fluoxetine HCl 10 Mg Tablet, 10 MG PO DAILY, (Reported) take with 20mg dose Hydrocodone Bit/Acetaminophen 1 Tab Tab, 1 TAB PO Q4H PRN for PAIN-MODERATE Prescribed by: SEAN MORENO on 11/30/17920 Ibuprofen 600 Mg Tablet, 600 MG PO Q6H Prescribed by: SEAN MORENO on 11/30/17920 Metoprolol Tartrate 25 Mg Tablet, 25 MG PO BID, (Reported) Multivitamin 1 Each Tablet, 1 EACH PO DAILY, (Reported) Phentermine HCl 15 Mg Capsule, 15 MG PO DAILY, (Reported) Prednisone 20 Mg Tab, 60 MG PO DAILY Prescribed by: TOM HAIRSTON on 07/14/19 1208 Sumatriptan Succinate 100 Mg Tablet, 100 MG PO UD PRN for MIGRAINE, (Reported) Topiramate 25 Mg Tablet, 25 MG PO BID, (Reported) Tramadol HCl 50 Mg Tablet, 50 MG PO DAILY PRN for PAIN-MILD, (Reported) Trazodone HCl 50 Mg Tablet, 50 MG PO HS, (Reported) Patient Home Medication List Home Medication List Reviewed: Yes Review of Systems Review of Systems Constitutional: No chills, No diaphoresis EENTM: No Blurred Vision, No Double Vision Respiratory: Shortness of Air, SOA With Exertion; Denies Wheezing Cardiovascular: See HPI, Chest Pain; Denies Edema Gastrointestinal: Denies Constipated, Denies Diarrhea, Denies Nausea Genitourinary: Denies Burning, Denies Discharge, Denies Drainage, Denies Frequency Musculoskeletal: No back pain, No joint pain Skin: No pruritus, No rash Psychiatric/Neurological: Denies Headache, Denies Numbness, Denies Paresthesia All Other Systems Reviewed Negative Unless Noted: Yes Past Lsayyey-Ggktqx-Qtijew Hx Patient Social History Alcohol Use: Occasionally Uses Alcohol Beverage of Choice: Wine Recreational Drug Use: No Smoking Status: Current Everyday Smoker Type Used: Cigarettes Former Smoker, Quit: Sep 13, 2015 2nd Hand Smoke Exposure: No Recent Foreign Travel: No Contact w/Someone Who Travel: No Recent Hopitalizations: No Immunizations Up To Date Tetanus Booster (TDap): Unknown Date of Influenza Vaccine: Mar 01, 2010 Seasonal Allergies Seasonal Allergies: Yes Past Medical History Surgeries: Yes (PARTIAL HYSTERECTOMY WITH LSO, right oopherectomy) Abdominal, Adenoidectomy, Appendectomy, Section, Gallbladder, Hysterectomy, Oophorectomy, Tonsillectomy, Tubal Ligation Respiratory: Yes Asthma Cardiac: No Neurological: Yes Headaches /Migraines Reproductive Disorders: Yes (CPP) Female Reproductive Disorders: Endometriosis [employer] History: Hysterectomy Genitourinary: No Gastrointestinal: Yes Colitis, Gastroesophageal Reflux, Irritable Bowel Musculoskeletal: No Endocrine: No HEENT: No Cancer: No Psychosocial: No Integumentary: No Blood Disorders: No Physical Exam Vital Signs Vital Signs - First Documented 10/08/19 14:04 Pulse 85 Resp 18 B/P (MAP) 167/110 (129) Pulse Ox 100 O2 Delivery Room Air Capillary Refill : Height, Weight, BMI Height: 5'2.00" Weight: 212lbs. 0.0oz. [id number]; 42.00 BMI Method:Stated General Appearance: Anxious, Obese HEENT: PERRL/EOMI, Pharynx Normal, Moist Mucous Membranes Neck: Full Range of Motion, Normal Inspection Respiratory: Lungs Clear, Normal Breath Sounds, No Accessory Muscle Use, No Respiratory Distress (oxygen saturation 98% on room), Other (chest pain reproducible to direct palpation anteriorly and posteriorly) Cardiovascular: Regular Rate, Rhythm, Normal Peripheral Pulses Gastrointestinal: Normal Bowel Sounds, Non Tender, Soft Neurologic/Psychiatric: Alert, Oriented x3, No Motor/Sensory Deficits, Other (anxious affect) Skin: Normal Color, Warm/Dry Progress/Results/Core Measures Results/Orders Lab Results Laboratory Tests Test 10/08/19 14:20 10/08/19 14:43 10/08/19 14:59 Range/Units White Blood Count 9.4 4.3-11.0 10^3/uL Red Blood Count 4.40 4.35-5.85 10^6/uL Hemoglobin 13.5 11.5-16.0 G/DL Hematocrit 39 35-52 % Mean Corpuscular Volume 89 80-99 FL Mean Corpuscular Hemoglobin 31 25-34 PG Mean Corpuscular Hemoglobin Concent 34 32-36 G/DL Red Cell Distribution Width 12.4 10.0-14.5 % Platelet Count 401 H 130-400 10^3/uL Mean Platelet Volume 8.4 7.4-10.4 FL Neutrophils (%) (Auto) 48 42-75 % Lymphocytes (%) (Auto) 39 12-44 % Monocytes (%) (Auto) 8 0-12 % Eosinophils (%) (Auto) 4 0-10 % Basophils (%) (Auto) 1 0-10 % Neutrophils # (Auto) 4.5 1.8-7.8 X 10^3 Lymphocytes # (Auto) 3.7 1.0-4.0 X 10^3 Monocytes # (Auto) 0.8 0.0-1.0 X 10^3 Eosinophils # (Auto) 0.4 H 0.0-0.3 10^3/uL Basophils # (Auto) 0.1 0.0-0.1 10^3/uL D-Dimer 0.32 0.00-0.49 UG/ML Sodium Level 140 135-145 MMOL/L Potassium Level 3.6 3.6-5.0 MMOL/L Chloride Level 108 H 98-107 MMOL/L Carbon Dioxide Level 22 21-32 MMOL/L Anion Gap 10 5-14 MMOL/L Blood Urea Nitrogen 8 7-18 MG/DL Creatinine 0.75 0.60-1.30 MG/DL Estimat Glomerular Filtration Rate > 60 BUN/Creatinine Ratio 11 Glucose Level 92 70-105 MG/DL Calcium Level 9.3 8.5-10.1 MG/DL Corrected Calcium 9.0 8.5-10.1 MG/DL Total Bilirubin 0.4 0.1-1.0 MG/DL Aspartate Amino Transf (AST/SGOT) 35 H 5-34 U/L Alanine Aminotransferase (ALT/SGPT) 41 0-55 U/L Alkaline Phosphatase 91 40-136 U/L Troponin I < 0.028 <0.028 NG/ML C-Reactive Protein High Sensitivity 0.72 H 0.00-0.50 MG/DL Total Protein 7.3 6.4-8.2 GM/DL Albumin 4.4 3.2-4.5 GM/DL Blood Gas Puncture Site RR Blood Gas Patient Temperature 36.6 Arterial Blood pH 7.45 H 7.37-7.43 Arterial Blood Partial Pressure CO2 33 L 35-45 MMHG Arterial Blood Partial Pressure O2 69 L 79-93 MMHG Arterial Blood HCO3 23 23-27 MMOL/L Arterial Blood Total CO2 24.2 21.0-31.0 MMOL/L Arterial Blood Oxygen Saturation 93 L 94-100 % Arterial Blood Base Excess -0.4 -2.5-2.5 MMOL/L Toi Test YES-POS Blood Gas Ventilator Setting NO Blood Gas Inspired Oxygen RA Urine Color YELLOW Urine Clarity CLEAR Urine pH 7.0 5-9 Urine Specific [place] 1.010 L 1.016-1.022 Urine Protein NEGATIVE NEGATIVE Urine Glucose (UA) NEGATIVE NEGATIVE Urine Ketones NEGATIVE NEGATIVE Urine Nitrite NEGATIVE NEGATIVE Urine Bilirubin NEGATIVE NEGATIVE Urine Urobilinogen 0.2 < = 1.0 MG/DL Urine Leukocyte Esterase NEGATIVE NEGATIVE Urine RBC (Auto) NEGATIVE NEGATIVE Urine RBC 0-2 /HPF Urine WBC 2-5 /HPF Urine Squamous Epithelial Cells 5-10 /HPF Urine Crystals NONE /LPF Urine Bacteria FEW H /HPF Urine Casts NONE /LPF Urine Mucus NEGATIVE /LPF Urine Culture Indicated YES My Orders Orders - MICHI,DIONI J Ekg Tracing (10/08/19 14:11) Continuous Ekg Monitoring (10/08/19 14:11) Cbc With Automated Diff (10/08/19 14:12) Comprehensive Metabolic Panel (10/08/19 14:12) Hs C Reactive Protein (10/08/19 14:12) Fibrin Degradation Products (10/08/19 14:12) Chest Pa/Lat (2 View) (10/08/19 14:12) Arterial Blood Gas (10/08/19 14:12) Ua Culture If Indicated (10/08/19 14:12) Troponin I (10/08/19 14:40) Urine Culture (10/08/19 14:59) Albuterol/Ipra Inhalation Soln (Duoneb I (10/08/19 15:15) Svn Small Volume Nebulizer (10/08/19 15:15) Medications Given in ED Current Medications Medications Dose Ordered Sig/Irma Route Start Time Stop Time Status Last Admin Dose Admin Albuterol/ Ipratropium 3 ml ONCE ONCE INH 10/08/19 15:15 10/08/19 15:16 DC 10/08/19 14:45 3 ML Vital Signs/I&O 10/08/19 10/08/19 14:04 14:25 Pulse 85 Resp 18 B/P (MAP) 167/110 (129) Pulse Ox 100 100 O2 Delivery Room Air Room Air Progress Progress Note #1: Time: 14:39 Progress Note Sounds like pleuritic versus chest wall pain. Plan to give her a DuoNeb get an ABG labs, EKG and troponin. Her symptoms have been going on for 2 days now. NSAIDs may be helpful for her chest wall pain. She's not having any wheezing or tightness and has aseptic vital signs. While making an attempted an ABG with patient did feel very faint and had a near vasovagal syncope. Progress Note #2: Time: 15:43 Progress Note Patient is comfortable. She was having a vasovagal syncope from the needle. The ABG at the time. He was drawn and I suspect that explains why she was hypoxic. Chest x-ray and her vital signs have been normal. Don't see anything emergent here and have encouraged her to treat her pleuritic/chest wall pain with NSAIDs and give good strong return precautions. Initial ECG Impression Date: October 08, 2019 Initial ECG Impression Time: 14:10 Initial ECG Rate: 72 Initial ECG Rhythm: Normal Sinus Initial ECG Intervals: Normal Initial ECG Impression: Normal Initial ECG Comparisson: No Previous ECG Available Comment Normal sinus rhythm without ST elevation or depression. Diagnostic Imaging Diagonstic Imaging: Xray Plain Films/CT/US/NM/MRI: chest Comments No acute cardiopulmonary processes noted on 2 view chest x-ray. Reviewed: Reviewed by Me Departure Impression Primary Impression: Pleuritic chest pain Disposition: HOME, SELF-CARE Condition: Stable Departure-Patient Inst. Decision time for Depature: 15:44 Referrals: CHUCK SHEARER MD (PCP/Family) Primary Care Physician Patient Instructions: Pleuritic Chest Pain (DC) Add. Discharge Instructions: Naproxen 500 mg twice a day as necessary for chest wall pain. Tylenol 1000 mg every 8 hours as needed for chest wall pain breakthrough. Heating pads can be helpful. Topical creams with capsaicin oil are very beneficial. Pleurisy typically lasts a couple weeks at the most. If lasting longer than one to 2 weeks you need to follow-up with your primary care doctor. If it is becoming intractable or accompanied with other worrisome symptoms such as fever or inability to catch her breath then you need to return to the nearest ER promptly. Scripts Naproxen (Naprosyn) 500 Mg Tablet 500 MG PO BID PRN for PAIN-BREAKTHROUGH, #30 TAB 0 Refills Prov: DIONI BORDEN 10/08/19 Work/School Note: Family Work Note Patient Received Medical Care In the Emergency Department On: October 08, 2019 Patient Will Be Able to Return to Work/School On: October 10, 2019 DIONI BORDEN October 08, 2019 14:25
[2019-10-08 14:43] LABS: ALBUMIN 4.4 GM/DL (3.2-4.5); CHLORIDE 108 MMOL/L (98-107); POTASSIUM 3.6 MMOL/L (3.6-5.0); SODIUM 140 MMOL/L (135-145)
[2019-10-08 14:44] LABS: BASOPHILS # (AUTO) 0.1 10^3/uL (0.0-0.1); BASOPHILS % (AUTO) 1 % (0-10); CALCIUM 9.3 MG/DL (8.5-10.1); EOSINOPHILS # (AUTO) 0.4 10^3/uL (0.0-0.3); EOSINOPHILS % (AUTO) 4 % (0-10); HEMATOCRIT 39 % (35-52); HEMOGLOBIN 13.5 G/DL (11.5-16.0); LYMPHOCYTES # (AUTO) 3.7 X 10^3 (1.0-4.0); LYMPHOCYTES % (AUTO) 39 % (12-44); MEAN CORPUSCULAR HEMOGLOBIN 31 PG (25-34); MEAN CORPUSCULAR HGB CONC 34 G/DL (32-36); MEAN CORPUSCULAR VOLUME 89 FL (80-99); MEAN PLATELET VOLUME 8.4 FL (7.4-10.4); MONOCYTES # (AUTO) 0.8 X 10^3 (0.0-1.0); MONOCYTES % (AUTO) 8 % (0-12); NEUTROPHILS # (AUTO) 4.5 X 10^3 (1.8-7.8); NEUTROPHILS % (AUTO) 48 % (42-75); PLATELET COUNT 401 10^3/uL (130-400); RED CELL DISTRIBUTION WIDTH 12.4 % (10.0-14.5); WHITE BLOOD COUNT 9.4 10^3/uL (4.3-11.0)
[2019-10-08 14:46] LABS: GLUCOSE 92 MG/DL (70-105); TOTAL PROTEIN 7.3 GM/DL (6.4-8.2)
[2019-10-08 14:47] LABS: BILIRUBIN,TOTAL 0.4 MG/DL (0.1-1.0); CARBON DIOXIDE 22 MMOL/L (21-32)
[2019-10-08 14:49] LABS: ALKALINE PHOSPHATASE 91 U/L (40-136); CREATININE SERUM 0.75 MG/DL (0.60-1.30); GFR ESTIMATED > 60
[2019-10-08 14:50] LABS: BUN/CREATININE RATIO 11
[2019-10-08 14:52] LABS: ALANINE AMINOTRANSFERASE 41 U/L (0-55)
[2019-10-08 14:56] LABS: ABG BASE EXCESS -0.4 MMOL/L (-2.5-2.5); ABG OXYGEN SATURATION 93 % (94-100); ABG PCO2 33 MMHG (35-45); ABG PH 7.45 (7.37-7.43); ABG PO2 69 MMHG (79-93); ABG TCO2 24.2 MMOL/L (21.0-31.0)
[2019-10-08 14:57] LABS: ALLENS TEST YES-POS; INSPIRED O2 RA; PATIENT TEMP 36.6; VENTILATOR NO
[2019-10-08 15:05] LABS: BILIRUBIN,URINE NEGATIVE (NEGATIVE); CLARITY,URINE CLEAR; COLOR,URINE YELLOW; GLUCOSE, URINE (UA) NEGATIVE (NEGATIVE); KETONES,URINE NEGATIVE (NEGATIVE); LEUKOCYTE ESTERASE ,URINE NEGATIVE (NEGATIVE); NITRITE,URINE NEGATIVE (NEGATIVE); PROTEIN,URINE NEGATIVE (NEGATIVE)
[2019-10-08 15:13] LABS: BACTERIA,URINE FEW /HPF; RBC,URINE 0-2 /HPF
[2019-10-08] MEDS ORDERED: RT-ALBUTEROL/IPRATROPIUM 3 ML (DUONEB) VIAL INH ONE (15:15)
--- NOTE | 2019-10-08 15:31 | Diagnostic Imaging Report ---
INDICATION: Shortness of air and chest pain. TIME OF EXAM: 03:23 p.m. COMPARISON: Comparison is made with prior chest from 09/18/2016. The heart size is normal. The pulmonary vascularity is unremarkable. The lungs are clear. No infiltrate, effusion or pneumothorax is detected. IMPRESSION: No acute cardiopulmonary process is detected. Dictated by: Dictated on workstation # [id number]
[2019-10-08] MEDS ORDERED: NAPR-1071 PO (15:47)
[2019-10-08 15:57] VITALS: BP 119/88
== END 2019-10-08 15:55 | disposition home or self-care (01) ==
LOC: EDUNIT# 13:59 → ER 14:00
DX: R07.81 Pleurodynia (principal); K21.9 Gastro-esophageal reflux disease without esophagitis; J45.909 Unspecified asthma, uncomplicated; G43.909 Migraine, unspecified, not intractable, without status migrainosus; F17.210 Nicotine dependence, cigarettes, uncomplicated
CPT/HCPCS: 36415; 36600; 71046; 80053; 81000; 82805; 84484; 85025; 85379; 86141; 87088; 93005; 94640

== ENCOUNTER → 2019-11-29 | Outpatient (CLI) | payer MEDICAID ==
[~2019-11-29] MED LIST changes: +MULT-567 PO; -MULT1TAB69 PO; +NAPR-1071 PO
--- NOTE | 2019-11-29 12:12 | Diagnostic Imaging Report ---
INDICATION: Pain and lump in the upper right breast. Patient indicated that she did not want to obtain a diagnostic mammogram today. Patient did have a screening mammogram one year earlier at [facility]. Sonographic interrogation of the upper right breast at the area of pain and lump was performed. No sonographic abnormality is detected. No solid or cystic mass is detected. IMPRESSION: BI-RADS Category 1 No sonographic abnormalities identified. Close clinical and self breast exam is recommended to confirm stability of the palpable abnormality. Consideration could be given to performance of a diagnostic mammogram as well. ACR BI-RADS Category 1: Negative. Result letter will be mailed to the patient. Note: At least 10% of breast cancer is not imaged by mammography. Dictated by: Dictated on workstation # [id number]
== END ==
LOC: RAD 08:59
PROVIDERS: ATTEND Obstetrics & Gynecology
DX: N63.10 Unspecified lump in the right breast, unspecified quadrant (principal)

== ENCOUNTER → 2020-01-02 | Outpatient (CLI) | payer MEDICAID ==
--- NOTE | 2020-01-02 14:16 | Diagnostic Imaging Report ---
INDICATION: Palpable lump right breast. Patient also complains of pain. Patient reports pain has improved over the last month. Patient did undergo a right breast ultrasound on 11/29/2019, which was without abnormality. 2-D and 3-D bilateral diagnostic mammography was performed with CAD. A BB marker was placed at the area of palpable abnormality in the upper right breast. There are scattered fibroglandular densities in both breasts. No mass or malignant appearing microcalcifications are seen. Axillae are unremarkable. IMPRESSION: BI-RADS Category 1. No mammographic features suspicious for malignancy are identified. Continued close clinical and self breast exams are recommended to confirm stability of the palpable lump in the right breast. ACR BI-RADS Category 1: Negative. Result letter will be mailed to the patient. Note: At least 10% of breast cancer is not imaged by mammography. Dictated by: Dictated on workstation # [id number]
== END ==
LOC: RAD 12:31
PROVIDERS: ATTEND Obstetrics & Gynecology
DX: N63.12 Unspecified lump in the right breast, upper inner quadrant (principal)
CPT/HCPCS: 77062; 77066

== ENCOUNTER 2020-02-20 13:03 | Outpatient (RCR) | payer MEDICAID ==
[~2020-02-20 13:03] MED LIST changes: -OXYC-465 PO; +OXYC-556 PO
== END 2020-03-18 15:03 | disposition home or self-care (01) ==
PROVIDERS: ATTEND Obstetrics & Gynecology
DX: R10.2 Pelvic and perineal pain (principal)

== ENCOUNTER → 2020-07-21 | Outpatient (CLI) | payer MEDICAID ==
--- NOTE | 2020-07-21 15:19 | Diagnostic Imaging Report ---
INDICATION: Early satiety. EXAMINATION: Gastric emptying study. FINDINGS: 1 mCi of technetium 99m sulfur colloid was administered with a meal. Emptying was then monitored over the next 4 hours. At 1 hour, there was 38% emptying. At 2 hours, there was 64% emptying. At 3 hours, there was 84% emptying. At 4 hours, there was 99% emptying. IMPRESSION: The patient has a normal rate of gastric emptying. Dictated by: Dictated on workstation # [id number]
== END ==
LOC: CARD 09:00
DX: R68.81 Early satiety (principal)
CPT/HCPCS: 36415; 78264; 82784; 83516; 84443

== ENCOUNTER 2021-04-21 08:15 | Emergency (ER) | payer BC, MEDICAID ==
[~2021-04-21] VITALS: Ht 157 cm; Wt 109.0 kg
[~2021-04-21 08:15] MED LIST changes: -FLUO20CA46 PO; +FLUO20CA48 PO; -PHEN15CA PO; +PHEN15CA6 PO; -RIZA5TAB28 PO; +RIZA5TAB30 PO
[2021-04-21] MEDS ORDERED: LACTATED RINGERS 1,000 ML IV ONE (09:15)
[2021-04-21 09:22] LABS: BILIRUBIN,URINE NEGATIVE (NEGATIVE); CLARITY,URINE CLEAR; COLOR,URINE YELLOW; GLUCOSE, URINE (UA) NEGATIVE (NEGATIVE); KETONES,URINE NEGATIVE (NEGATIVE); LEUKOCYTE ESTERASE ,URINE NEGATIVE (NEGATIVE); NITRITE,URINE NEGATIVE (NEGATIVE); PROTEIN,URINE NEGATIVE (NEGATIVE)
[2021-04-21 09:24] LABS: BASOPHILS # (AUTO) 0.1 10^3/uL (0.0-0.1); BASOPHILS % (AUTO) 1 % (0-10); EOSINOPHILS # (AUTO) 0.3 10^3/uL (0.0-0.3); EOSINOPHILS % (AUTO) 2 % (0-10); HEMATOCRIT 39 % (35-52); HEMOGLOBIN 13.1 g/dL (11.5-16.0); LYMPHOCYTES # (AUTO) 4.6 10^3/uL (1.0-4.0); LYMPHOCYTES % (AUTO) 30 % (12-44); MEAN CORPUSCULAR HEMOGLOBIN 31 pg (25-34); MEAN CORPUSCULAR HGB CONC 33 g/dL (32-36); MEAN CORPUSCULAR VOLUME 92 fL (80-99); MEAN PLATELET VOLUME 8.3 fL (9.0-12.2); MONOCYTES % (AUTO) 7 % (0-12); NEUTROPHILS # (AUTO) 9.3 10^3/uL (1.8-7.8); NEUTROPHILS % (AUTO) 61 % (42-75); PLATELET COUNT 413 10^3/uL (130-400); WHITE BLOOD COUNT 15.3 10^3/uL (4.3-11.0)
[2021-04-21 09:28] LABS: BACTERIA,URINE MODERATE /HPF; RBC,URINE RARE /HPF
[2021-04-21 09:33] LABS: ALBUMIN 4.3 GM/DL (3.2-4.5); POTASSIUM 3.9 MMOL/L (3.6-5.0)
[2021-04-21 09:34] LABS: CALCIUM 9.6 MG/DL (8.5-10.1)
[2021-04-21 09:36] LABS: TOTAL PROTEIN 7.2 GM/DL (6.4-8.2)
[2021-04-21 09:38] LABS: BILIRUBIN,TOTAL 0.3 MG/DL (0.1-1.0)
[2021-04-21 09:39] LABS: NEUTROPHILS % (MANUAL) 57 %
[2021-04-21 09:40] LABS: BAND NEUTROPHILS 2 %; BASOPHILS % (MANUAL) 1 %; CREATININE SERUM 0.86 MG/DL (0.60-1.30); EOSINOPHILS % (MANUAL) 2 %; LYMPHOCYTES % (MANUAL) 31 %; MONOCYTES % (MANUAL) 7 %; RBC MORPH NORMAL
--- NOTE | 2021-04-21 09:57 | ED General ---
General Chief Complaint: Cough/Cold/Flu Symptoms Stated Complaint: SOB,DIZZINESS,COUGH Nursing Triage Note: DIZZINESS X3 DAYS, SOB AND COUGH STARTING YESTERDAY. WAS SEEN BY PIERRE KAUFMAN AND PUT ON MECLAZINE. Source of Information: Patient Exam Limitations: No Limitations History of Present Illness Date Seen by Provider: Apr 21, 2021 Time Seen by Provider: 08:09 Initial Comments Here with report of upper respiratory symptoms over the last several days including dizziness with some cough. She has been on meclizine intermittently. She is vaccinated. Her daughter was also sick and tested for Covid and it was negative. She has not had vomiting or diarrhea. Also reports that dizziness is her main concern. Also been under increased stress lately due to family stress. Afebrile. Does feel some congestion in the ears. Timing/Duration: 3-4 Days, Changing Over Time Severity: Mild, Moderate Associated Systoms: No Cough, No Fever/Chills, No Nausea/Vomiting; Shortness of Air; No Weakness Allergies and Home Medications Allergies Coded Allergies: No Known Drug Allergies (Unverified , 10/30/08) Patient Home Medication List Home Medication List Reviewed: Yes Albuterol Sulfate (Proair Hfa) 1 Puff Puff, 2 PUFF IH Q4H PRN for WHEEZING, (Reported) Entered as Reported by: ADOLPH DIEZ on 11/24/17 1037 Famotidine (Pepcid) 20 Mg Tablet, 20 MG PO BID, (Reported) Entered as Reported by: ADOLPH DIEZ on 11/24/17 1037 Fluoxetine HCl (Fluoxetine HCl) 20 Mg Capsule, 20 MG PO DAILY, (Reported) Entered as Reported by: ADOLPH DIEZ on 11/24/17 1037 Fluoxetine HCl (Fluoxetine HCl) 10 Mg Tablet, 10 MG PO DAILY, (Reported) Entered as Reported by: ADOLPH DIEZ on 11/24/17 1037 Hydrocodone Bit/Acetaminophen (Lortab 5 Mg Tablet) 1 Tab Tab, 1 TAB PO Q4H PRN for PAIN-MODERATE Prescribed by: SEAN MORENO on 11/30/17920 Ibuprofen (Ibuprofen) 600 Mg Tablet, 600 MG PO Q6H Prescribed by: SEAN MORENO on 11/30/17920 Metoprolol Tartrate (Metoprolol Tartrate) 25 Mg Tablet, 25 MG PO BID, (Reported) Entered as Reported by: ADOLPH DIEZ on 11/24/17 1037 Multivitamin (Multivitamins) 1 Each Tablet, 1 EACH PO DAILY, (Reported) Entered as Reported by: ADOLPH DIEZ on 11/24/17 1015 Naproxen (Naprosyn) 500 Mg Tablet, 500 MG PO BID PRN for PAIN-BREAKTHROUGH Prescribed by: DIONI BORDEN on 10/08/19 1547 Phentermine HCl (Phentermine HCl) 15 Mg Capsule, 15 MG PO DAILY, (Reported) Entered as Reported by: ADOLPH DIEZ on 11/24/17 1037 Prednisone (Prednisone) 20 Mg Tab, 60 MG PO DAILY Prescribed by: TOM HAIRSTON on 07/14/19 1208 Sumatriptan Succinate (Sumatriptan Succinate) 100 Mg Tablet, 100 MG PO UD PRN for MIGRAINE, (Reported) Entered as Reported by: ADOLPH DIEZ on 11/24/17 1037 Topiramate (Topamax) 25 Mg Tablet, 25 MG PO BID, (Reported) Entered as Reported by: ADOLPH DIEZ on 09/12/16 1343 Tramadol HCl (Tramadol HCl) 50 Mg Tablet, 50 MG PO DAILY PRN for PAIN-MILD, (Reported) Entered as Reported by: ADOLPH DIEZ on 11/24/17 1037 Trazodone HCl (Trazodone HCl) 50 Mg Tablet, 50 MG PO HS, (Reported) Entered as Reported by: ADOLPH DIEZ on 11/24/17 1037 Review of Systems Review of Systems Constitutional: see HPI; No chills, No fever EENTM: nose congestion; No throat pain Respiratory: cough, short of breath Cardiovascular: No chest pain Gastrointestinal: No nausea, No vomiting Genitourinary: no symptoms reported Musculoskeletal: no symptoms reported Psychiatric/Neurological: See HPI; Denies Headache; Other (Dizziness) All Other Systems Reviewed Negative Unless Noted: Yes Past Vpgabua-Tzdgdm-Zqgboa Hx Patient Social History Tobacco Use?: No Substance use?: No Alcohol Use?: No Immunizations Up To Date Tetanus Booster (TDap): Unknown Second COVID19 Vaccination Carlos: 07/12 COVID19 Vaccine Operations Administrator: ZULMA Seasonal Allergies Seasonal Allergies: Yes Past Medical History Surgeries: Yes (PARTIAL HYSTERECTOMY WITH LSO, right oopherectomy) Abdominal, Adenoidectomy, Appendectomy, Section, Gallbladder, Hysterectomy, Oophorectomy, Tonsillectomy, Tubal Ligation Respiratory: Yes Asthma Cardiac: No Neurological: Yes Headaches /Migraines Reproductive Disorders: Yes (CPP) Female 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 0.0oz. 96.010859iq; 44.00 BMI Method:Stated General Appearance: No Apparent Distress, WD/WN HEENT: PERRL/EOMI, TMs Normal, Pharynx Normal Neck: Non Tender, Supple Respiratory: Lungs Clear, Normal Breath Sounds Cardiovascular: Regular Rate, Rhythm, No Murmur Gastrointestinal: Non Tender, Soft Extremity: Normal Range of Motion, Non Tender, No Calf Tenderness Neurologic/Psychiatric: Alert, Oriented x3 Skin: Normal Color, Warm/Dry Progress/Results/Core Measures Suspected Sepsis SIRS Temperature: Pulse: 83 Respiratory Rate: 16 Laboratory Tests 04/21/21 09:08: White Blood Count 15.3H Blood Pressure 139 /109 Mean: 119 Laboratory Tests 04/21/21 09:08: Creatinine 0.86, Platelet Count 413H, Total Bilirubin 0.3 Results/Orders Lab Results Laboratory Tests Test 04/21/21 09:08 04/21/21 09:11 Range/Units White Blood Count 15.3 H 4.3-11.0 10^3/uL Red Blood Count 4.27 3.80-5.11 10^6/uL Hemoglobin 13.1 11.5-16.0 g/dL Hematocrit 39 35-52 % Mean Corpuscular Volume 92 80-99 fL Mean Corpuscular Hemoglobin 31 25-34 pg Mean Corpuscular Hemoglobin Concent 33 32-36 g/dL Red Cell Distribution Width 11.8 10.0-14.5 % Platelet Count 413 H 130-400 10^3/uL Mean Platelet Volume 8.3 L 9.0-12.2 fL Immature Granulocyte % (Auto) 0 % Neutrophils (%) (Auto) 61 42-75 % Lymphocytes (%) (Auto) 30 12-44 % Monocytes (%) (Auto) 7 0-12 % Eosinophils (%) (Auto) 2 0-10 % Basophils (%) (Auto) 1 0-10 % Neutrophils # (Auto) 9.3 H 1.8-7.8 10^3/uL Lymphocytes # (Auto) 4.6 H 1.0-4.0 10^3/uL Monocytes # (Auto) 1.0 0.0-1.0 10^3/uL Eosinophils # (Auto) 0.3 0.0-0.3 10^3/uL Basophils # (Auto) 0.1 0.0-0.1 10^3/uL Immature Granulocyte # (Auto) 0.1 0.0-0.1 10^3/uL Neutrophils % (Manual) 57 % Lymphocytes % (Manual) 31 % Monocytes % (Manual) 7 % Eosinophils % (Manual) 2 % Basophils % (Manual) 1 % Band Neutrophils 2 % Blood Morphology Comment NORMAL D-Dimer 0.31 0.00-0.49 UG/ML Sodium Level 140 135-145 MMOL/L Potassium Level 3.9 3.6-5.0 MMOL/L Chloride Level 103 98-107 MMOL/L Carbon Dioxide Level 27 21-32 MMOL/L Anion Gap 10 5-14 MMOL/L Blood Urea Nitrogen 9 7-18 MG/DL Creatinine 0.86 0.60-1.30 MG/DL Estimat Glomerular Filtration Rate 76 BUN/Creatinine Ratio 10 Glucose Level 85 70-105 MG/DL Calcium Level 9.6 8.5-10.1 MG/DL Corrected Calcium 9.4 8.5-10.1 MG/DL Total Bilirubin 0.3 0.1-1.0 MG/DL Aspartate Amino Transf (AST/SGOT) 30 5-34 U/L Alanine Aminotransferase (ALT/SGPT) 32 0-55 U/L Alkaline Phosphatase 61 40-136 U/L C-Reactive Protein High Sensitivity 0.20 0.00-0.50 MG/DL Total Protein 7.2 6.4-8.2 GM/DL Albumin 4.3 3.2-4.5 GM/DL Urine Color YELLOW Urine Clarity CLEAR Urine pH 6.0 5-9 Urine Specific [place] 1.010 L 1.016-1.022 Urine Protein NEGATIVE NEGATIVE Urine Glucose (UA) NEGATIVE NEGATIVE Urine Ketones NEGATIVE NEGATIVE Urine Nitrite NEGATIVE NEGATIVE Urine Bilirubin NEGATIVE NEGATIVE Urine Urobilinogen 0.2 < = 1.0 MG/DL Urine Leukocyte Esterase NEGATIVE NEGATIVE Urine RBC (Auto) NEGATIVE NEGATIVE Urine RBC RARE /HPF Urine WBC NONE /HPF Urine Squamous Epithelial Cells 2-5 /HPF Urine Crystals NONE /LPF Urine Bacteria MODERATE H /HPF Urine Casts NONE /LPF Urine Mucus NEGATIVE /LPF Urine Culture Indicated YES My Orders Orders - SAPNA JUAREZ MD Cbc With Automated Diff (04/21/21 09:06) Comprehensive Metabolic Panel (04/21/21 09:06) Hs C Reactive Protein (04/21/21 09:06) Fibrin Degradation Products (04/21/21 09:06) Ua Culture If Indicated (04/21/21 09:06) Ed Iv/Invasive Line Start (04/21/21 09:06) Lactated Ringers (Lr 1000 Ml Iv Solution (04/21/21 09:15) Manual Differential (04/21/21 09:08) Urine Culture (04/21/21 09:11) Medications Given in ED Current Medications Medications Dose Ordered Sig/Irma Route Start Time Stop Time Status Last Admin Dose Admin Lactated Ringer's 1,000 ml @ 0 mls/hr Q0M ONCE IV 04/21/21 09:15 04/21/21 09:16 DC 04/21/21 09:14 1,000 MLS/HR Vital Signs/I&O 04/21/21 08:28 Temp 36.6 Pulse 83 Resp 16 B/P (MAP) 139/109 (119) Pulse Ox 97 O2 Delivery Room Air Capillary Refill : Less Than 3 Seconds Blood Pressure Mean: 119 Progress Note : Progress Note Seen and evaluated. IV, labs and UA ordered. LR 1 L bolus. Monitor patient. 1010: No significant findings on labs or urine. Slight contamination of urine but culture pending. No indication for you GI treatment currently. A little better after fluids. She was able to walk to the bathroom and back unassisted and without difficulty. I did discuss with her the importance of rest and time. Likely upper respiratory infection augmented by stress currently. She is also on steroids and antibiotics. She and her agree. Discharged home with return precautions. Patient verbalized understanding of instructions and agreement with plan. Departure Impression Primary Impression: Upper respiratory infection Qualified Codes: J06.9 - Acute upper respiratory infection, unspecified Additional Impression: Dizziness Disposition: HOME, SELF-CARE Condition: Improved Departure-Patient Inst. Decision time for Depature: 10:12 Referrals: IFEOMA KAUFMAN DNP (PCP/Family) Primary Care Physician Patient Instructions: Viral Upper Respiratory Infection, Adult (DC), Vertigo (a Type of Dizziness), Dizziness, Nonvertigo, (DC) Add. Discharge Instructions: All discharge instructions reviewed with patient and/or family. Voiced understanding. Drink plenty of fluids, eat a normal diet and get plenty of rest. Follow-up with your doctor early next week for recheck and further evaluation as needed. You may continue meclizine 25 mg 1 tablet every 8 hours as needed for dizziness. You may use ibuprofen and/or Tylenol/acetaminophen as needed for fever or pain. Return for worse pain, fever, vomiting, weakness, breathing problems, worsening or persisting dizziness or other concerns as needed. Work/School Note: Work Release Form Date Seen in the Emergency Department: Apr 21, 2021 Return to Work: Apr 24, 2021 Restrictions: No Restrictions SAPNA JUAREZ MD Apr 21, 2021 09:57
[2021-04-21 10:21] VITALS: BP 138/89
== END 2021-04-21 10:21 | disposition home or self-care (01) ==
LOC: EDUNIT# 08:15 → ER 08:17
DX: J06.9 Acute upper respiratory infection, unspecified (principal); R42 Dizziness and giddiness; J45.909 Unspecified asthma, uncomplicated; K21.9 Gastro-esophageal reflux disease without esophagitis; Z79.899 Other long term (current) drug therapy
CPT/HCPCS: 36415; 80053; 81000; 85007; 85027; 85379; 86141; 87088

== ENCOUNTER → 2021-12-24 | Outpatient (CLI) | payer BC, MEDICAID ==
[~2021-12-24] MED LIST changes: +RIZA5TAB28 PO; -RIZA5TAB30 PO
[2021-12-24 16:31] LABS: BASOPHILS # (AUTO) 0.1 10^3/uL (0.0-0.1); BASOPHILS % (AUTO) 1 % (0-10); EOSINOPHILS # (AUTO) 0.1 10^3/uL (0.0-0.3); EOSINOPHILS % (AUTO) 0 % (0-10); HEMATOCRIT 42 % (35-52); HEMOGLOBIN 14.4 g/dL (11.5-16.0); LYMPHOCYTES % (AUTO) 22 % (12-44); MEAN CORPUSCULAR HEMOGLOBIN 31 pg (25-34); MEAN CORPUSCULAR HGB CONC 34 g/dL (32-36); MEAN CORPUSCULAR VOLUME 91 fL (80-99); MEAN PLATELET VOLUME 8.1 fL (9.0-12.2); MONOCYTES # (AUTO) 0.9 10^3/uL (0.0-1.0); MONOCYTES % (AUTO) 5 % (0-12); NEUTROPHILS # (AUTO) 12.8 10^3/uL (1.8-7.8); NEUTROPHILS % (AUTO) 71 % (42-75); PLATELET COUNT 438 10^3/uL (130-400)
[2021-12-24 16:46] LABS: ERYTHROCYTE SEDIMENTATION RATE 11 MM/HR (0-20)
[2021-12-24 16:47] LABS: ALBUMIN 4.6 GM/DL (3.2-4.5)
[2021-12-24 16:48] LABS: CHLORIDE 104 MMOL/L (98-107); SODIUM 139 MMOL/L (135-145)
[2021-12-24 16:49] LABS: CALCIUM 9.8 MG/DL (8.5-10.1)
[2021-12-24 16:50] LABS: GLUCOSE 93 MG/DL (70-105); TOTAL PROTEIN 7.6 GM/DL (6.4-8.2)
[2021-12-24 16:51] LABS: CARBON DIOXIDE 25 MMOL/L (21-32)
[2021-12-24 16:52] LABS: BILIRUBIN,TOTAL 0.4 MG/DL (0.1-1.0)
[2021-12-24 16:53] LABS: ALKALINE PHOSPHATASE 60 U/L (40-136); CREATININE SERUM 0.93 MG/DL (0.60-1.30); GFR ESTIMATED 83
[2021-12-24 16:55] LABS: BUN/CREATININE RATIO 11
[2021-12-24 16:56] LABS: ALANINE AMINOTRANSFERASE 22 U/L (0-55)
[2021-12-24 17:03] LABS: LYMPHOCYTES % (MANUAL) 24 %; MONOCYTES % (MANUAL) 3 %; NEUTROPHILS % (MANUAL) 73 %; RBC MORPH NORMAL
--- NOTE | 2021-12-24 17:24 | Diagnostic Imaging Report ---
EXAMINATION: Chest 2 view HISTORY: CHEST TIGHTNESS COMPARISON: 10/08/2019. FINDINGS: Heart size and pulmonary vasculature are normal. The lungs are clear without consolidation, pleural effusion, or pneumothorax. The osseous structures are intact. IMPRESSION: 1. No acute radiographic abnormality in the chest. Dictated by: Dictated on workstation # [id number]
== END ==
LOC: RAD 16:08
PROVIDERS: ATTEND Nurse Practitioner Family
DX: J21.8 Acute bronchiolitis due to other specified organisms (principal)
CPT/HCPCS: 36415; 71046; 80053; 85007; 85027; 85379; 85652

== ENCOUNTER 2022-12-14 12:47 | Emergency (ER) | payer MEDICAID ==
[~2022-12-14] VITALS: Ht 157.5 cm; Wt 93.0 kg
[~2022-12-14 12:47] MED LIST changes: +ALBU8.5H6 IH; -FLUO10TA PO; +FLUO10TA28 PO; -RT-ALBUINH IH
[2022-12-14] MEDS ORDERED: NS IV 1000 ML 1,000 ML IV STA (13:01)
--- NOTE | 2022-12-14 13:04 | ED Headache ---
General Chief Complaint: Head/Cervical Problems Stated Complaint: MIGRAINE Nursing Triage Note: pt states she has had a migrane for 8 days, has frequent migranes and her pcp it trying to change her medications around. was seen last and given toradol which did help briefly. is being treated for and ear infection, has 2 days left of rx for that. Source: patient History of Present Illness Date Seen by Provider: Dec 14, 2022 Time Seen by Provider: 13:02 Initial Comments Patient is a 37-year-old female presents ED with a migraine. She states she has had head pain for the past 8 days. Described as a grinding pressure throughout her head down into her neck. This pain has been constant. similar type hea daches in the past. History of frequent migraines. She states her primary is trying to change her medication she does take Imitrex for her migraines which typically helps but no improvement with her pain over the past 8 days. She reports photophobia. Dry heaving without vomiting. Denies any unilateral muscle weakness or sensory changes. Currently on antibiotic for ear infection. She is all Dr. Engle on received Toradol shot with some improvement. She denies chest pain, shortness of breath, cough, visual loss, unilateral muscle weakness or sensory changes, ear pain, sinus pressure. Patient also takes trazodone as well. Allergies and Home Medications Allergies Coded Allergies: No Known Drug Allergies (Unverified , 10/30/08) Patient Home Medication List Home Medication List Reviewed: Yes Albuterol Sulfate (Ventolin Hfa) 1 Puff Puff, 2 PUFF IH Q4H PRN for WHEEZING, (Reported) Entered as Reported by: ADOLPH DIEZ on 11/24/17 1037 Famotidine (Pepcid) 20 Mg Tablet, 20 MG PO BID, (Reported) Entered as Reported by: ADOLPH DIEZ on 11/24/17 1037 Fluoxetine HCl (Fluoxetine HCl) 20 Mg Capsule, 20 MG PO DAILY, (Reported) Entered as Reported by: ADOLPH DIEZ on 11/24/17 1037 Fluoxetine HCl (Fluoxetine HCl) 10 Mg Tablet, 10 MG PO DAILY, (Reported) Entered as Reported by: ADOLPH DIEZ on 11/24/17 1037 Hydrocodone Bit/Acetaminophen (Lortab 5 Mg Tablet) 1 Tab Tab, 1 TAB PO Q4H PRN for PAIN-MODERATE Prescribed by: SEAN MORENO on 11/30/17 0921 Ibuprofen (Ibuprofen) 600 Mg Tablet, 600 MG PO Q6H Prescribed by: SEAN MORENO on 11/30/17 0921 Metoprolol Tartrate (Metoprolol Tartrate) 25 Mg Tablet, 25 MG PO BID, (Reported) Entered as Reported by: ADOLPH DIEZ on 11/24/17 1037 Multivitamin (Multivitamins) 1 Each Tablet, 1 EACH PO DAILY, (Reported) Entered as Reported by: ADOLPH DIEZ on 11/24/17 1015 Naproxen (Naprosyn) 500 Mg Tablet, 500 MG PO BID PRN for PAIN-BREAKTHROUGH Prescribed by: DIONI BORDEN on 10/08/19 1547 Phentermine HCl (Phentermine HCl) 15 Mg Capsule, 15 MG PO DAILY, (Reported) Entered as Reported by: ADOLPH DIEZ on 11/24/17 1037 Prednisone (Prednisone) 20 Mg Tab, 60 MG PO DAILY Prescribed by: TOM HAIRSTON on 07/14/19 1208 Sumatriptan Succinate (Sumatriptan Succinate) 100 Mg Tablet, 100 MG PO UD PRN for MIGRAINE, (Reported) Entered as Reported by: ADOLPH DIEZ on 11/24/17 1037 Topiramate (Topamax) 25 Mg Tablet, 25 MG PO BID, (Reported) Entered as Reported by: ADOLPH DIEZ on 09/12/16 1343 Tramadol HCl (Tramadol HCl) 50 Mg Tablet, 50 MG PO DAILY PRN for PAIN-MILD, (Reported) Entered as Reported by: ADOLPH DIEZ on 11/24/17 1037 Trazodone HCl (Trazodone HCl) 50 Mg Tablet, 50 MG PO HS, (Reported) Entered as Reported by: ADOLPH DIEZ on 11/24/17 1037 Review of Systems Review of Systems Constitutional: No chills, No diaphoresis, No fever, No malaise, No weakness Eyes: Denies Drainage, Denies Decreased Acuity Ears, Nose, Mouth, Throat: denies ear pain Respiratory: No cough, No dyspnea on exertion Cardiovascular: No chest pain, No edema Gastrointestinal: No abdominal pain; nausea; No vomiting Genitourinary: No decreased output, No discharge Musculoskeletal: No back pain, No joint pain All Other Systems Reviewed Negative Unless Noted: Yes Past Brxvfom-Mhtppb-Zhijti Hx Immunizations Up To Date Tetanus Booster (TDap): Unknown Second COVID19 Vaccination Carlos: 07/12 Seasonal Allergies Seasonal Allergies: Yes Past Medical History Surgeries: Yes (PARTIAL HYSTERECTOMY WITH LSO, right oopherectomy) Abdominal, Adenoidectomy, Appendectomy, Section, Gallbladder, Hysterectomy, Oophorectomy, Tonsillectomy, Tubal Ligation Respiratory: Yes Asthma Cardiac: No Neurological: Yes Headaches /Migraines Reproductive Disorders: Yes (CPP) Female Reproductive Disorders: Endometriosis 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 0.0oz. 96.644805ce; 37.00 BMI Method:Stated General Appearance: WD/WN, no apparent distress HEENT: PERRL/EOMI, normal ENT inspection, TMs normal, pharynx normal Neck: non-tender, full range of motion, supple, normal inspection Cardiovascular: regular rate, rhythm, no edema, no gallop, no JVD Respiratory: chest non-tender, lungs clear, normal breath sounds, no respiratory distress, no accessory muscle use Gastrointestinal: normal bowel sounds, non tender, soft Back: normal inspection, no CVA tenderness Extremities: normal range of motion, non-tender, normal inspection, no pedal edema Psychiatric: alert, oriented x 3 Crainal Nerves: normal hearing, normal speech, PERRL Coordination/Gait: normal finger to nose, normal gait Skin: normal color, warm/dry Progress/Results/Core Measures Results/Orders My Orders Orders - ENZO JAMES Iv 1000 Ml (Sodium Chloride 0.9%) (12/14/22 13:01) Diphenhydramine Injection (Benadryl Inje (12/14/22 13:15) Prochlorperazine Injection (Compazine In (12/14/22 13:15) Ketorolac Injection (Toradol Injection) (12/14/22 13:15) Medications Given in ED Current Medications Medications Dose Ordered Sig/Irma Route Start Time Stop Time Status Last Admin Dose Admin Diphenhydramine HCl 25 mg ONCE ONCE IVP 12/14/22 13:15 12/14/22 13:16 DC 12/14/22 13:11 25 MG Ketorolac Tromethamine 30 mg ONCE ONCE IVP 12/14/22 13:15 12/14/22 13:16 DC 12/14/22 13:11 30 MG Prochlorperazine Edisylate 10 mg ONCE ONCE IV 12/14/22 13:15 12/14/22 13:16 DC 12/14/22 13:11 10 MG Vital Signs/I&O 12/14/22 13:00 Temp 36.4 Pulse 70 Resp 18 B/P (MAP) 138/91 (107) Pulse Ox 95 O2 Delivery Room Air Blood Pressure Mean: 107 Departure Communication (PCP) Reviewed previous ER visits, H&P, lab testing. Patient is a 37-year-old female who presents ED with a migraine. Symptoms started 8 days ago. Rates pain 9 out of 10. Pain is generalized radiating down into her neck. History of migraines states today's head pain feels very similar. Dry heaving with photophobia. Differential diagnosis migraine, viral syndrome, sinusitis, stroke. Due to similar type presentation imaging was held. She has no neurological red flag findings suggesting emergent imaging. She did receive some improvement with Toradol last by her primary care physician. She did receive a migraine cocktail here with a liter of fluid, Compazine, Benadryl and Toradol with near improvement of migraine. Patient is ready to be discharged. She is currently on antibiotic for bilateral ear infections which seem to be improving. Vital signs stable. Recommend rest at home. If any worsening symptoms return back to ED for further evaluation. Impression Primary Impression: Migraine Disposition: HOME, SELF-CARE Condition: Stable Departure-Patient Inst. Decision time for Depature: 13:45 Referrals: JOSELIN ENGLE DO (PCP) Primary Care Physician IFEOMA ENGLE, ANN (Family) Primary Care Physician Patient Instructions: Migraines (DC) Add. Discharge Instructions: Recommend follow-up your PCP for further evaluation. Recommend going home to rest. Continue with your daily regimen of medication All discharge instructions reviewed with patient and/or family. Voiced understanding. ENZO JAMES Dec 14, 2022 13:04
[2022-12-14] MEDS ORDERED: diphenhydrAMINE 50 MG/ML INJ (BENADRYL) IVP ONE (13:15)
[2022-12-14] MEDS ORDERED: PROCHLORPERAZINE 10 MG/2ML INJ (COMPAZINE) IV ONE (13:15)
[2022-12-14] MEDS ORDERED: KETOROLAC 30 MG/ML VIAL IVP ONE (13:15)
[2022-12-14 13:55] VITALS: BP 130/86
== END 2022-12-14 13:56 | disposition home or self-care (01) ==
LOC: EDUNIT# 12:47 → ER 12:51
DX: G43.909 Migraine, unspecified, not intractable, without status migrainosus (principal); H66.93 Otitis media, unspecified, bilateral; Z79.899 Other long term (current) drug therapy

== ENCOUNTER → 2023-04-12 | Outpatient (CLI) | payer MEDICAID ==
[~2023-04-12] MED LIST changes: +KETOROLAC INJ 30 MG/ML VIAL IV ONE; +ONDANSETRON INJECTION 4 MG/2 ML (SDV) IV ONE
[2023-04-12 11:49] VITALS: BP 118/99
[2023-04-12] MEDS: LACTATED RINGERS 1,000 ML 1,000 ML IV SCH ×2 (12:03→12:38)
== END ==
LOC: SDC 11:11
PROVIDERS: ATTEND Nurse Practitioner Family
DX: E86.0 Dehydration (principal); K52.9 Noninfective gastroenteritis and colitis, unspecified
CPT/HCPCS: 96360; 96361

== ENCOUNTER 2023-04-23 04:33 | Emergency (ER) | payer MEDICAID ==
[~2023-04-23] VITALS: Ht 157.5 cm; Wt 92.0 kg
[~2023-04-23 04:33] MED LIST changes: -KETOROLAC INJ 30 MG/ML VIAL IV ONE; -ONDANSETRON INJECTION 4 MG/2 ML (SDV) IV ONE
[2023-04-23 05:12] LABS: BASOPHILS # (AUTO) 0.1 10^3/uL (0.0-0.1); BASOPHILS % (AUTO) 1 % (0-10); EOSINOPHILS # (AUTO) 0.2 10^3/uL (0.0-0.3); EOSINOPHILS % (AUTO) 2 % (0-10); HEMATOCRIT 42 % (35-52); HEMOGLOBIN 14.2 g/dL (11.5-16.0); LYMPHOCYTES # (AUTO) 3.8 10^3/uL (1.0-4.0); LYMPHOCYTES % (AUTO) 34 % (12-44); MEAN CORPUSCULAR HEMOGLOBIN 30 pg (25-34); MEAN CORPUSCULAR HGB CONC 34 g/dL (32-36); MEAN CORPUSCULAR VOLUME 90 fL (80-99); MEAN PLATELET VOLUME 8.5 fL (9.0-12.2); MONOCYTES # (AUTO) 0.9 10^3/uL (0.0-1.0); MONOCYTES % (AUTO) 8 % (0-12); NEUTROPHILS # (AUTO) 6.1 10^3/uL (1.8-7.8); NEUTROPHILS % (AUTO) 55 % (42-75); PLATELET COUNT 375 10^3/uL (130-400); WHITE BLOOD COUNT 11.1 10^3/uL (4.3-11.0)
--- NOTE | 2023-04-23 05:13 | ED Cardiac General ---
History of Present Illness General Chief Complaint: Chest Pain Stated Complaint: CP Source: patient Exam Limitations: no limitations History of Present Illness Date Seen by Provider: Apr 23, 2023 Time Seen by Provider: 05:06 Initial Comments Patient is a 38-year-old female who presents to the emergency room with a chief complaint of midsternal chest discomfort that woke her from sleep at about 1 AM this morning. She states she took some Prilosec and she used some Tums without any relief of symptoms. She states it seems to radiate into her left arm and her left hand is "numb". She states she has been nauseous for a couple of days with decreased appetite. She was sick for 10 days prior to this with nausea, URI symptoms. No fevers or chills. She has had a little diarrhea the last couple of days. No dysuria, urgency or frequency. She states that sitting up makes her chest pain feel little better, laying back makes it hurt a little worse. She feels a little short of breath with the discomfort. She does not take medication for high blood pressure. She does vape nicotine. Unknown family history as she is adopted. 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: No ASA po CASHIER AND SALESPERSON: No Associated Systoms: Nausea/Vomiting (Nausea without vomiting), Shortness of Air Allergies and Home Medications Allergies Coded Allergies: No Known Drug Allergies (Unverified , 10/30/08) Patient Home Medication List Home Medication List Reviewed: Yes Albuterol Sulfate (Ventolin Hfa) 1 Puff Puff, 2 PUFF IH Q4H PRN for WHEEZING, (Reported) Entered as Reported by: ADOLPH DIEZ on 11/24/17 1037 Famotidine (Pepcid) 20 Mg Tablet, 20 MG PO BID, (Reported) Entered as Reported by: ADOLPH DIEZ on 11/24/17 1037 Fluoxetine HCl (Fluoxetine HCl) 20 Mg Capsule, 20 MG PO DAILY, (Reported) Entered as Reported by: ADOLPH DIEZ on 11/24/17 1037 Fluoxetine HCl (Fluoxetine HCl) 10 Mg Tablet, 10 MG PO DAILY, (Reported) Entered as Reported by: ADOLPH DIEZ on 11/24/17 1037 Hydrocodone Bit/Acetaminophen (Lortab 5 Mg Tablet) 1 Tab Tab, 1 TAB PO Q4H PRN for PAIN-MODERATE Prescribed by: SEAN MORENO on 11/30/17 09 Ibuprofen (Ibuprofen) 600 Mg Tablet, 600 MG PO Q6H Prescribed by: SEAN MORENO on 11/30/17 0921 Metoprolol Tartrate (Metoprolol Tartrate) 25 Mg Tablet, 25 MG PO BID, (Reported) Entered as Reported by: ADOLPH DIEZ on 11/24/17 1037 Multivitamin (Multivitamins) 1 Each Tablet, 1 EACH PO DAILY, (Reported) Entered as Reported by: ADOLPH DIEZ on 11/24/17 1015 Naproxen (Naprosyn) 500 Mg Tablet, 500 MG PO BID PRN for PAIN-BREAKTHROUGH Prescribed by: DIONI BORDEN on 10/08/19 1547 Phentermine HCl (Phentermine HCl) 15 Mg Capsule, 15 MG PO DAILY, (Reported) Entered as Reported by: ADOLPH DIEZ on 11/24/17 1037 Prednisone (Prednisone) 20 Mg Tab, 60 MG PO DAILY Prescribed by: TOM HAIRSTON on 07/14/19 1208 Sumatriptan Succinate (Sumatriptan Succinate) 100 Mg Tablet, 100 MG PO UD PRN for MIGRAINE, (Reported) Entered as Reported by: ADOLPH DIEZ on 11/24/17 1037 Topiramate (Topamax) 25 Mg Tablet, 25 MG PO BID, (Reported) Entered as Reported by: ADOLPH DIEZ on 09/12/16 1343 Tramadol HCl (Tramadol HCl) 50 Mg Tablet, 50 MG PO DAILY PRN for PAIN-MILD, (Reported) Entered as Reported by: ADOLPH DIEZ on 11/24/17 1037 Trazodone HCl (Trazodone HCl) 50 Mg Tablet, 50 MG PO HS, (Reported) Entered as Reported by: ADOLPH DIEZ on 11/24/17 1037 Review of Systems Review of Systems Constitutional: see HPI EENTM: Mouth Pain Respiratory: Shortness of Air Cardiovascular: Chest Pain Gastrointestinal: Diarrhea, Nausea Genitourinary: No Symptoms Reported Musculoskeletal: no symptoms reported Skin: no symptoms reported Psychiatric/Neurological: No Symptoms Reported Past Nvsdgai-[id number]-Gmhpjj Hx Immunizations Up To Date Tetanus Booster (TDap): Unknown First/Initial COVID19 Vaccinat: 07/12 Second COVID19 Vaccination Carlos: 07/12 Third COVID19 Vaccination Date: 07/12 Seasonal Allergies Seasonal Allergies: Yes Past Medical History Surgery/Hospitalization HX: migranes, hyst, thyroid, l shoulder surg Surgeries: Yes (PARTIAL HYSTERECTOMY WITH LSO, right oopherectomy) Abdominal, Adenoidectomy, Appendectomy, Section, Gallbladder, Hysterectomy, Oophorectomy, Tonsillectomy, Tubal Ligation Respiratory: Yes Asthma Cardiac: No Neurological: Yes Headaches /Migraines Reproductive Disorders: Yes (CPP) Female 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 0.0oz. 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 Norm as Tested Skin: Normal Color, Warm/Dry Progress/Results/Core Measures Results/Orders Lab Results Laboratory Tests Test 04/23/23 05:00 Range/Units White Blood Count 11.1 H 4.3-11.0 10^3/uL Red Blood Count 4.69 3.80-5.11 10^6/uL Hemoglobin 14.2 11.5-16.0 g/dL Hematocrit 42 35-52 % Mean Corpuscular Volume 90 80-99 fL Mean Corpuscular Hemoglobin 30 25-34 pg Mean Corpuscular Hemoglobin Concent 34 32-36 g/dL Red Cell Distribution Width 12.2 10.0-14.5 % Platelet Count 375 130-400 10^3/uL Mean Platelet Volume 8.5 L 9.0-12.2 fL Immature Granulocyte % (Auto) 0 % Neutrophils (%) (Auto) 55 42-75 % Lymphocytes (%) (Auto) 34 12-44 % Monocytes (%) (Auto) 8 0-12 % Eosinophils (%) (Auto) 2 0-10 % Basophils (%) (Auto) 1 0-10 % Neutrophils # (Auto) 6.1 1.8-7.8 10^3/uL Lymphocytes # (Auto) 3.8 1.0-4.0 10^3/uL Monocytes # (Auto) 0.9 0.0-1.0 10^3/uL Eosinophils # (Auto) 0.2 0.0-0.3 10^3/uL Basophils # (Auto) 0.1 0.0-0.1 10^3/uL Immature Granulocyte # (Auto) 0.0 0.0-0.1 10^3/uL Sodium Level 142 135-145 MMOL/L Potassium Level 3.1 L 3.6-5.0 MMOL/L Chloride Level 106 98-107 MMOL/L Carbon Dioxide Level 25 21-32 MMOL/L Anion Gap 11 5-14 MMOL/L Blood Urea Nitrogen 5 L 7-18 MG/DL Creatinine 0.78 0.60-1.30 MG/DL Estimat Glomerular Filtration Rate 101 BUN/Creatinine Ratio 6 Glucose Level 88 70-105 MG/DL Calcium Level 9.6 8.5-10.1 MG/DL Troponin I < 0.028 <0.028 NG/ML Serum Test, Qualitative NEGATIVE NEGATIVE My Orders Orders - LATRICE RIBEIRO MD Ekg Tracing (04/23/23 04:53) Cbc And Automated Diff (04/23/23 05:07) Basic Metabolic Panel (04/23/23 05:07) Troponin I Ananth (04/23/23 05:07) Chest 1 View, Ap/Pa Only (04/23/23 05:07) Hcg,Qualitative Serum (04/23/23 05:07) Sucralfate Tablet (Sucralfate Tablet) (04/23/23 05:30) Antacid Suspension (Antacid Suspension (04/23/23 05:30) Lidocaine 2% Viscous 15 Ml (Xylocaine Vi (04/23/23 05:30) Medications Given in ED Current Medications Medications Dose Ordered Sig/Irma Route Start Time Stop Time Status Last Admin Dose Admin Al Hydrox/Mg Hydrox/Simethicone 30 ml ONCE ONCE PO 04/23/23 05:30 04/23/23 05:31 DC 04/23/23 05:31 30 ML Lidocaine HCl 5 ml ONCE ONCE PO 04/23/23 05:30 04/23/23 05:31 DC 04/23/23 05:31 5 ML Sucralfate 1 gm ONCE ONCE PO 04/23/23 05:30 04/23/23 05:31 DC 04/23/23 05:32 1 GM Vital Signs/I&O 04/23/23 04:50 Temp 36.3 Pulse 58 Resp 16 B/P (MAP) 133/98 (110) Progress Progress Note : Time: 05:37 Progress Note Patient seen and evaluated by me. Evaluation today includes history and physical exam, CBC, basic metabolic panel, single view chest x-ray, EKG and troponin. Pertinent physical exam findings well-developed well-nourished obese female in no acute distress, stable vital signs. Afebrile. Heart is regular, lungs are clear, mild tenderness in the epigastrium. No focal neurologic deficits. Differential diagnosis includes GERD, ACS, bronchitis. Patient's labs independently reviewed and interpreted by me. Her CBC is normal, basic metabolic panel is normal, troponin is undetectable 4 hours after the onset of pain making ACS unlikely. Chest x-ray is clear without infiltrate or effusion. EKG is sinus rate of [address] segment elevation or ectopy. Patient is treated with 5 mL of viscous lidocaine, 15 mL of Maalox and a gram of Carafate. She states after this she still has discomfort - reassurance provided that her caridac markers are negative (obtained 4h post onset of pain). No concerning findings on exam, labs or imaging for infectious or surgical process. Toradol 15mg ordered and administered. Patient is advised to continue her Prilosec daily. Advised close follow-up with her primary care physician (Dr Engle). Return precautions provided in both verbal and written format. Initial ECG Impression Date: Apr 23, 2023 Initial ECG Impression Time: 05:00 Initial ECG Rate: 55 Initial ECG Rhythm: Normal Sinus Diagnostic Imaging Diagonstic Imaging: Xray Plain Films/CT/US/NM/MRI: chest Comments CXR independently reviewed and interpreted by me - no acute findings Departure Impression Primary Impression: Chest pain Qualified Codes: R07.9 - Chest pain, unspecified Additional Impression: GERD (gastroesophageal reflux disease) Qualified Codes: K21.9 - Gastro-esophageal reflux disease without esophagitis Disposition: HOME, SELF-CARE Condition: Improved Departure-Patient Inst. Referrals: JOSELIN ENGLE DO (PCP) Primary Care Physician IFEOMA ENGLE DNP (Family) Primary Care Physician LATRICE RIBEIRO MD Apr 23, 2023 05:13
[2023-04-23 05:20] LABS: CHLORIDE 106 MMOL/L (98-107); POTASSIUM 3.1 MMOL/L (3.6-5.0); SODIUM 142 MMOL/L (135-145)
[2023-04-23 05:21] LABS: CALCIUM 9.6 MG/DL (8.5-10.1); GLUCOSE 88 MG/DL (70-105)
[2023-04-23 05:23] LABS: CARBON DIOXIDE 25 MMOL/L (21-32)
[2023-04-23 05:25] LABS: CREATININE SERUM 0.78 MG/DL (0.60-1.30); GFR ESTIMATED 101
[2023-04-23 05:26] LABS: BUN/CREATININE RATIO 6
[2023-04-23] MEDS ORDERED: SUCRALFATE 1 GM TABLET PO ONE (05:30)
[2023-04-23] MEDS ORDERED: ANTACID SUSPENSION 30 ML UDC PO ONE (05:30)
[2023-04-23] MEDS ORDERED: LIDOCAINE 2% VISCOUS 15 ML UDC PO ONE (05:30)
[2023-04-23] MEDS ORDERED: KETOROLAC INJ 15 MG/ML VIAL IVP ONE (06:15)
[2023-04-23 06:42] VITALS: BP 132/97
--- NOTE | 2023-04-23 07:43 | Diagnostic Imaging Report ---
INDICATION: Chest pain COMPARISON: 12/24/2021 TECHNIQUE: Single radiograph of the chest dated 04/23/2023. FINDINGS: The cardiac silhouette is within normal limits in size. No significant pulmonary vascular congestion. The lungs are clear. No pleural effusion. No pneumothorax. No acute osseous abnormality. IMPRESSION: Stable examination without acute cardiopulmonary abnormality. Dictated by: Dictated on workstation # [id number]
== END 2023-04-23 06:45 | disposition home or self-care (01) ==
LOC: EDUNIT# 04:33 → ER 04:35
DX: K21.9 Gastro-esophageal reflux disease without esophagitis (principal); F17.290 Nicotine dependence, other tobacco product, uncomplicated; E66.9 Obesity, unspecified; Z68.37 Body mass index [BMI] 37.0-37.9, adult; Z90.49 Acquired absence of other specified parts of digestive tract
CPT/HCPCS: 36415; 71045; 80048; 84484; 84703; 85025; 93005